=== PATIENT | female | born 1960 | race Caucasian/White ===

== ENCOUNTER 2017-09-29 18:26 | Inpatient (IN) | payer OTHER ==
[~2017-09-29] VITALS: Ht 172.7 cm; Wt 82.6 kg
[~2017-09-29 18:26] MED LIST: ALENDRONATE SOD70 MG PO; AMBIEN; AMITRIPTYLINE H25 M2 PO; ATIVAN0.5 MG PO; ATIVAN1 MG PO; ATORVASTATIN CA40 MG PO; AUGMENTIN 875875 MG PO; CARAFATE 1 GM TA1 G1 PO; CENTRUM SILVER1 EAC4 PO; CHLORDIAZEPOXID25 M1 PO; CIPRO500 MG PO; DESYREL100 MG PO; DESYREL150 MG; FAMOTIDINE20 MG PO; FLUZONE 2045 MCG/011; FOLIC ACID1 MG PO; Folic Acid PO; IBUPROFEN 600600 M1 PO; LIPITOR10 MG; LIPITOR10 MG PO; LIPITOR20 MG PO; MAGOX 400400 MG PO; NORCO 5-325 TA1 EACH PO; OMEPRAZOLE40 MG PO; ONDANSETRON HCL4 M3 PO; PANTOPRAZOLE SO40 M1 PO; PHENERGAN 25 MG25 M1 PO; PHENERGAN12.5 M2 RECTAL; PNEUMOVAX25 MCG/0.5; PRENATA CHEWAB1 EACH PO; REVIA 50 MG TAB50 M1 PO; TRAZODONE HCL100 MG PO; TRAZODONE HCL50 MG PO; TRINATE TABLET1 TAB PO; VITAMIN B-1100 M1 PO; VITAMIN B1 100 MG PO; VITAMIN D1000 UNI1 PO; VITAMIN D35000 UNI1 PO; VITAMIN D350000 UNIT PO; ZANTAC 150MG T150 MG PO; ZOFRAN ODT4 MG PO; ZOFRAN4 MG PO; ZOLOFT; ZOLOFT 50 MG TA50 MG PO; ZOLOFT100 MG PO; ZOLOFT50 MG PO
[2017-09-29 18:28] VITALS: BP 128/80
[2017-09-29 19:20] LABS: CALCIUM 9.3 mg/dL (8.5-10.1); CREATININE 1.1 mg/dL (0.6-1.3); POTASSIUM 4.4 mmol/L (3.5-5.1)
[2017-09-29 19:24] LABS: ALBUMIN 4.5 g/dL (3.4-5.0); MAGNESIUM 1.9 mg/dL (1.8-2.4); TOTAL BILIRUBIN 0.3 mg/dL (<0.1-1.0); TOTAL PROTEIN 8.1 g/dL (6.4-8.2)
[2017-09-29 20:18] LABS: ABSOLUTE BASOPHILS 0.1 thou/uL (0.0-0.2); ABSOLUTE LYMPHOCYTES 1.2 thou/uL (0.8-5.3); ABSOLUTE MONOCYTES 0.3 thou/uL (0.0-1.2); ABSOLUTE NEUTROPHILS 7.4 thou/uL (1.6-8.1); BASOPHILS 0.6 %; EOSINOPHILS 0.1 %; HEMATOCRIT 40.2 % (37.0-47.0); HEMOGLOBIN 12.8 gm/dL (12.0-15.0); LYMPHOCYTES 13.3 %; MCH 29.6 pg (26.0-34.0); MCV 92.6 fL (80.0-100.0); MONOCYTES 3.8 %; MPV 7.6 fl. (7.2-11.1); NUCLEATED RBCS 0 /100WBC; PLATELET COUNT* 329 thou/uL (150-400); POLYS 82.2 %; RBC 4.34 mil/uL (4.20-5.00); RDW-CV 17.7 % (10.5-14.5)
[2017-09-29 21:20] LABS: BE -22.5 mmol/L (-2 to +3); PO2 107.8 mmHg (75.0-100.0)
[2017-09-29 21:23] LABS: PCO2 < 17.0 mmHg (35.0-45.0); pH 7.116 (7.340-7.450)
[2017-09-29 21:24] LABS: HCO3 4.8 mmol/L (22.0-26.0)
[2017-09-29 22:20] LABS: URINE BILIRUBIN NEGATIVE (Negative); URINE BLOOD TRACE (Negative); URINE CLARITY CLEAR; URINE COLOR YELLOW; URINE GLUCOSE-RANDOM NEGATIVE (Negative); URINE LEUKOCYTES-REFLEX NEGATIVE (Negative); URINE NITRITE-REFLEX NEGATIVE (Negative); URINE PROTEIN TRACE (Negative); URINE SPECIFIC GRAVITY >= 1.030 (1.005-1.030); URINE UROBILINOGEN 0.2 E.U./dl (0.2-1.0)
[2017-09-29 22:21] LABS: URINE KETONES 3+ (Negative)
[2017-09-29 22:29] LABS: AMP/METHAMP Negative (Negative); BARBITURATES Negative (Negative); BENZODIAZEPINES POSITIVE (Negative); COCAINE Negative (Negative); METHADONE Negative (Negative); OPIATES Negative (Negative); PCP Negative (Negative); THC Negative (Negative)
[2017-09-29 23:41] VITALS: BP 140/81
[2017-09-30] VITALS (12 sets, daily range): BP systolic 114–150; BP diastolic 66–87
--- NOTE | 2017-09-30 05:30 | NUR ---
PT. ADMITTED TO ROOM 1, SEE ASSESSMENT. ETOH WITHDRAWAL PROTOCOL. UP TO BSC STAND BY ASSIST. IVF INFUSING. SINUS TACHY ON MONITOR. ROOM AIR. CIWA 14 UPON ADMISSION. ORDER RECEIVED FOR ATIVAN PRN. CALL LIGHT IN REACH, WILL CONTINUE TO MONITOR.
[2017-09-30 08:43] LABS: HEMATOCRIT 32.5 % (37.0-47.0); MCH 30.1 pg (26.0-34.0); MCV 88.7 fL (80.0-100.0); MPV 7.1 fl. (7.2-11.1); RBC 3.66 mil/uL (4.20-5.00); RDW-CV 16.4 % (10.5-14.5); WBC 6.1 thou/uL (4.0-11.0)
[2017-09-30 08:52] LABS: PROTIME 10.1 Seconds (9.20-11.50)
[2017-09-30 08:53] LABS: CALCIUM 8.1 mg/dL (8.5-10.1); PHOSPHORUS* 1.5 mg/dL (2.5-4.9)
[2017-09-30 08:56] LABS: ALBUMIN 3.5 g/dL (3.4-5.0); CALCIUM 8.1 mg/dL (8.5-10.1); MAGNESIUM 1.9 mg/dL (1.8-2.4); POTASSIUM 4.3 mmol/L (3.5-5.1); TOTAL BILIRUBIN 0.5 mg/dL (<0.1-1.0); TOTAL PROTEIN 6.8 g/dL (6.4-8.2)
--- NOTE | 2017-09-30 09:39 | NUR ---
PATIENT CARE ASSUMED AT 0700. CURRENT CIWA UPON MORNING ASSESSMENT 5, AND HAS REMAINED THERE. DOSE OF ATIVAN GIVE THIS AM PER PATIENT REQUEST FOR MILD ANXIETY. TREMORS NOTED. PATIENT STATED SHE IS SEEING WHITE SPOTS EVERWHERE, BUT OTHERWISE CALM/NOT AGITATED. IV TO RIGHT EXTERNAL JUGULER REINFORCED. BANANA BAG INFUSING PER ORDERS AT THIS TIME. PATIENT GIVEN CLEAR LIQUIDS AND TOLERATING FINE WITH NO EVIDENCE OF NAUSEA. WILL CONTINUE WITH CURRENT PLAN OF CARE. GOAL FOR TODAY ARE TO PROMOTE COMFORT AND SAFETY.
--- NOTE | 2017-09-30 12:41 | EKG ---
[place] [address] ELECTROCARDIOGRAM REPORT Name: NANY FARAH Room: [address] ADM IN .R.#: [id number] Admission: 09/29/17 Attend Phys: Lucho Marroquin, Discharge: Date of : 62 Report #: [id number] THIS REPORT FOR: //name// [facility] ED Test Date: 2017-09-29 Test Time: 19:19:06 Pat Name: NANY FARAH Department: Room: [facility] Gender: F Sample Checker: PHANI Mayen : 1960 Requested By: Scott Simmons Order Number: [id number] MD: Rishi Callahan Measurements Intervals [place] Rate: 125 P: 35 [place]: 129 QRS: -44 QRSD: 97 T: -4 QT: 327 QTc: 472 Interpretive Statements Sinus tachycardia LAE, consider biatrial enlargement Inferior infarct, old Probable anterior infarct, age indeterminate Compared to ECG 10/22/2016 14:14:28 Myocardial infarct finding now present Left-axis deviation no longer present Electronically Signed On 09-30-2017 12:41:10 LUMBER PILER by Rishi Callahan [email or web address] <ELECTRONICALLY SIGNED> By: Clint Callahan MD, FAC 09/30/17 1241 18 18 Clint Callahan MD, FAC /EPI
--- NOTE | 2017-09-30 17:25 | NUR ---
PATIENT PROGRESSING TOWARDS GOALS. MOST CURRENT CIWA 2. PATIENT RESTING COMFORTABLY THROUGHOUT SHIFT. DENIES OTHER ACUTE ISSUES AT THIS TIME. ABLE TO TRANSFER TO BEDSIDE COMMODE WITH STANDBY ASSIST. IV IN RIGHT EJ REINFORCED. BANANA BAG COMPLETED, NOW SALINE LOCKED. PATIENT DOWNGRADED TO TELEMETRY STATUS TODAY. ADVANCED TO FULL LIQUIDS FOR DINNER. DENIES FURTHER NEEDS FROM NURSING STAFF AT THIS TIME.
[2017-10-01] VITALS: BP 123/71
[2017-10-01 04:00] VITALS: BP 118/79
[2017-10-01 06:36] LABS: CALCIUM 8.4 mg/dL (8.5-10.1); CREATININE 0.6 mg/dL (0.6-1.3); MAGNESIUM 1.9 mg/dL (1.8-2.4); PHOSPHORUS* 1.6 mg/dL (2.5-4.9)
[2017-10-01 06:37] LABS: POTASSIUM 4.8 mmol/L (3.5-5.1)
[2017-10-01] MEDS ORDERED: VITAMIN B-1100 M1 PO (07:23)
[2017-10-01 07:27] VITALS: BP 140/96
[2017-10-01 07:33] VITALS: BP 140/96
[2017-10-01 07:34] VITALS: BP 140/96
--- NOTE | 2017-10-01 08:46 | NUR ---
PATIENT CARE ASSUMED AT 0700. PATIENT AWAKE UPON ENTERING ROOM. CIWA 2 FOR NON-VISIBLE TREMORS, BUT DENIES ALVARADO, SOA, NAUSEA, ANXIETY, AND APPEARS CALM AT THIS TIME. AOX4. DISCHARGING TODAY, BUT PATIENT WISHING TO STAY UNTIL ATIVAN WEARS OUT OF SYSTEM AND SHE FEELS LESS DROWSY. MORNING MEDICATIONS GIVEN ORDERED. PHYSICIAN NOTIFIED FOR WORK RELEASE NOTE AND WAS PROVIDED FOR PATIENT TO RETURN ON Sunday10/03/17. PATIENT RESTING IN BED AT THIS TIME.
--- NOTE | 2017-10-01 11:53 | NUR ---
PATIENT DISCHARGED HOME. RESOURCES GIVEN BY CASE MANAGEMENT FOR OUTPATIENT ETOH TREATMENT. ALL BELONGINGS TAKEN WITH PATIENT. SCRIPT SENT ELECTRONICALLY TO PATIENT'S PHARMACY FOR THIAMIN. PATIENT DENIED FURTHER NEEDS. LEFT AT 1138 BY PRIVATE VEHICLE WITH PARENT AND EXTENDED FAMILY.
== END 2017-10-01 11:15 | disposition home or self-care (01) | DRG 897 ==
LOC: M.ERS 18:26 → M.ICU 22:11 → M.TBA-ER 22:11 → M.ICU 23:36
PROVIDERS: Physician Assistant; ADMIT Family Medicine
DX: F10.188 Alcohol abuse with other alcohol-induced disorder (principal); E87.2 Acidosis; E86.0 Dehydration; Y90.6 Blood alcohol level of 120-199 mg/100 ml; E78.5 Hyperlipidemia, unspecified; M81.0 Age-related osteoporosis without current pathological fracture; K21.9 Gastro-esophageal reflux disease without esophagitis; F32.9 Major depressive disorder, single episode, unspecified; F41.9 Anxiety disorder, unspecified; E16.2 Hypoglycemia, unspecified; E83.39 Other disorders of phosphorus metabolism; Z79.899 Other long term (current) drug therapy

== ENCOUNTER 2017-11-10 22:12 | Inpatient (IN) | payer OTHER ==
[~2017-11-10] VITALS: Ht 172.7 cm; Wt 85.7 kg
[2017-11-10 22:18] VITALS: BP 142/97
[2017-11-10 23:05] LABS: URINE BILIRUBIN NEGATIVE (Negative); URINE BLOOD NEGATIVE (Negative); URINE CLARITY CLEAR; URINE COLOR YELLOW; URINE GLUCOSE-RANDOM NEGATIVE (Negative); URINE KETONES TRACE (Negative); URINE LEUKOCYTES-REFLEX 2+ (Negative); URINE NITRITE-REFLEX NEGATIVE (Negative); URINE PROTEIN NEGATIVE (Negative); URINE SPECIFIC GRAVITY <= 1.005 (1.005-1.030); URINE UROBILINOGEN 0.2 E.U./dl (0.2-1.0)
[2017-11-10 23:07] LABS: ABSOLUTE EOSINOPHILS 0.1 thou/uL (0.0-0.7); ABSOLUTE LYMPHOCYTES 2.3 thou/uL (0.8-5.3); ABSOLUTE MONOCYTES 0.5 thou/uL (0.0-1.2); ABSOLUTE NEUTROPHILS 2.1 thou/uL (1.6-8.1); BASOPHILS 0.8 %; EOSINOPHILS 1.6 %; HEMATOCRIT 36.7 % (37.0-47.0); HEMOGLOBIN 12.3 gm/dL (12.0-15.0); LYMPHOCYTES 45.6 %; MCH 30.7 pg (26.0-34.0); MCHC 33.5 g/dL (28.0-37.0); MCV 91.7 fL (80.0-100.0); MONOCYTES 9.1 %; MPV 7.7 fl. (7.2-11.1); NUCLEATED RBCS 0 /100WBC; PLATELET COUNT* 195 thou/uL (150-400); POLYS 42.9 %; RBC 4.01 mil/uL (4.20-5.00); RDW-CV 19.5 % (10.5-14.5); WBC 4.9 thou/uL (4.0-11.0)
[2017-11-10 23:09] LABS: CALCIUM 9.5 mg/dL (8.5-10.1); CREATININE 0.7 mg/dL (0.6-1.3); POTASSIUM 3.8 mmol/L (3.5-5.1)
[2017-11-10 23:13] LABS: BACTERIA-REFLEX >30 Many /HPF (None Seen); CASTS None Seen /LPF (None Seen); CRYSTALS None Seen /LPF (None Seen); MUCUS 4-6 Moderate strn/LPF (None Seen); RENAL EPITHELIAL CELLS 0-3 Few /LPF (None Seen); SQUAMOUS 4-10 Moderate /LPF (0-3); TRANSITIONAL EPITHEL CELL 0-3 Few /LPF (None Seen); URINE RBC 3-10 Few /HPF (0-2); URINE WBC-REFLEX >25 Many /HPF (0-5); WBC CLUMPS Few (None Seen)
[2017-11-10 23:14] LABS: TOTAL BILIRUBIN 0.5 mg/dL (<0.1-1.0); TOTAL PROTEIN 7.8 g/dL (6.4-8.2)
[2017-11-10 23:14] LABS: AMP/METHAMP Negative (Negative); BARBITURATES Negative (Negative); BENZODIAZEPINES Negative (Negative); COCAINE Negative (Negative); METHADONE Negative (Negative); OPIATES Negative (Negative); PCP Negative (Negative); THC Negative (Negative)
[2017-11-10 23:18] LABS: ACETAMINOPHEN < 2 ug/mL (10-30); ALCOHOL 315 mg/dL (<10); SALICYLATE < 2.8 mg/dL (2.8-20.0)
[2017-11-11] VITALS (7 sets, daily range): BP systolic 126–157; BP diastolic 82–95
--- NOTE | 2017-11-11 02:41 | NUR ---
PT ARRIVED ON FLOOR AROUND 0115 FOR ETOH INTOXICATION. ON FLUIDS RUINING IN LEFT HAND AT 50 ML/HR. C/O PAIN IN HER FEET AND A HEADACHE. ADMISSION ASSESSMENT COMPLETED AT 0200. PT FALLING ASLEEP DURING QUESTIONS AND ASLEEP AT THIS TIME. PT FALL RISK RELATED TO IMPAIRED JUDGEMENT. CIWAP AT 7 AT THIS TIME R/T NAUSEA AND HEADACHE. WILL START PLAN OF CARE DIRECTED.
--- NOTE | 2017-11-11 08:22 | NUR ---
ASSUMED PT CARE AT 0730, FULL ASSESMENT DONE CHARTED. PT C/O PAIN IN HEAD AT 05/29. SHE C/O NAUSEA, ANXIETY AND WANTS SOME MEDS. CONTACTED DR TO GET SOME ORDERED. PTS VSS, SR ON THE MONITOR. FALL PRECATUIONS IN PLACE. CALL LIGHT IN REACH. WILL CONTINUE WITH PLAN OF CARE.
--- NOTE | 2017-11-11 12:46 | EKG ---
[place] [address] ELECTROCARDIOGRAM REPORT Name: SOFINANY JONATHAN Room: [address] ADM IN M.R.#: [id number] Admission: 11/10/17 Attend Phys: Nataliya Doll Discharge: Date of : 62 Report #: [id number] THIS REPORT FOR: //name// [facility] Test Date: 2017-11-11 Test Time: 03:44:58 Pat Name: NANY FARAH Department: Room: [address] Gender: F Professor Of Psychiatry: NICOLETTE : 1960 Requested By: Jonah Lyles Order Number: [id number] Reading MD: Pritesh Cuevas Measurements Intervals [place] Rate: 144 P: SD: QRS: -28 QRSD: 95 T: 101 QT: 327 QTc: 506 Interpretive Statements sinus tach pacs Borderline left axis deviation Borderline low voltage, extremity leads Nonspecific repol abnormality, diffuse leads Prolonged QT interval Baseline wander in lead(s) V1 Compared to ECG 09/29/2017 19:19:06 2:1 AV block now present Early repolarization now present Prolonged QT interval now present Sinus tachycardia no longer present Myocardial infarct finding no longer present Electronically Signed On 11-11-2017 12:46:06 CDT by Pritesh Cuevas [email or web address] <ELECTRONICALLY SIGNED> By: Pritesh Cuevas MD, [facility] 11/11/17 1246 0344 Pritesh Cuevas MD, [facility] /EPI
--- NOTE | 2017-11-11 18:52 | NUR ---
PT PROGRESSING TOWARD GOALS, SHE C/O NAUSEA, ALVARADO, ANXIETY, SWEATS AND TREMORS TODAY. REFER TO CHARTING FOR ALCOHOL WITH DRAWL ASSESMENTS. PT GIVEN MEDS PER MAR. PT STATES SHE IS HAVING NO SYMPTOMS AT THIS TIME. PT RESTING IN BED. FLUIDS INFUSING TO LEFT HAND IV. SR ON THE MONITOR. VSS. WILL CONTINUE TO MONITOR TO END OF SHIFT.
--- NOTE | 2017-11-11 19:50 | NUR ---
THIS NURSE RECEIVES REPORT FROM YU RN AT 1930, PT IS RESTING WITH EYES CLOSED, EASILY ARROUSED, ORIENTED X4, PT DENIES PAIN, REPORTS ANXIETY BETTER AND PT REPORTS THAT SHE OVERALL FEELS BETTER, IV FLUIDS INFUSINT TO RT WRIST IV, REMAINS ON CARDIAC MONITORING, PT EXPRESSES NO COMPLAINTS/CONCERNS AT THIS TIME
[2017-11-12 00:27] VITALS: BP 114/82
[2017-11-12 04:17] VITALS: BP 110/75
[2017-11-12 04:39] LABS: ABSOLUTE EOSINOPHILS 0.1 thou/uL (0.0-0.7); ABSOLUTE LYMPHOCYTES 1.6 thou/uL (0.8-5.3); ABSOLUTE MONOCYTES 0.5 thou/uL (0.0-1.2); ABSOLUTE NEUTROPHILS 0.8 thou/uL (1.6-8.1); BASOPHILS 0.9 %; EOSINOPHILS 3.5 %; HEMATOCRIT 33.2 % (37.0-47.0); HEMOGLOBIN 11.2 gm/dL (12.0-15.0); LYMPHOCYTES 51.6 %; MCH 30.9 pg (26.0-34.0); MCHC 33.6 g/dL (28.0-37.0); MCV 91.9 fL (80.0-100.0); MONOCYTES 16.8 %; MPV 7.8 fl. (7.2-11.1); NUCLEATED RBCS 0 /100WBC; PLATELET COUNT* 188 thou/uL (150-400); POLYS 27.2 %; RBC 3.62 mil/uL (4.20-5.00); RDW-CV 19.4 % (10.5-14.5); WBC 3.1 thou/uL (4.0-11.0)
[2017-11-12 05:20] LABS: CALCIUM 8.7 mg/dL (8.5-10.1); CREATININE 0.8 mg/dL (0.6-1.3); POTASSIUM 3.7 mmol/L (3.5-5.1)
--- NOTE | 2017-11-12 06:16 | NUR ---
PT RESTED WELL DURING THE NIGHT, AWOKE THIS AM WITH ALVARADO RECEIVES TYLENOL, PT DENIES ANXIETY, SCORES 5 ON CIWA, PT VOICES NO COMPLAINTS/CONCERNS
[2017-11-12 08:45] VITALS: BP 119/81
--- NOTE | 2017-11-12 08:45 | NUR ---
ASSUMED PT. CARE AND RECIVED REPORT AT 0730. PT A/OX4, VSS, MONITOR ON TRACING SR. PT. DENIES CURRENT PAIN/SOB. FULL ASSESSMENT COMPLETED, REFER TO CHARTING. CIWA SCORE THIS MORNING IS 0. CALL LIGHT IN REACH, WILL CONTINUE WITH PLAN OF CARE.
--- NOTE | 2017-11-12 11:19 | NUR ---
CM ASSESSMENT: Pt is A&O. Resides at home alone. Independent with ADLs, continues to work outside of the home. No DME. No hx of HH or SNF. Pt admitted for alcohol withdrawal, Pt acknowledges her drinking problem, states that she has been in residential tx at [facility] in [facility], in 2005 and 2007. Pt states that she has been in half a dozen outpt tx programs. Pt states "I know what I need to do, I just need to commit to doing it." CM provided Pt with a list of tx options/numbers. Pt's goal is to return home once medically stable.
--- NOTE | 2017-11-12 11:47 | NUR ---
Nutrition: Pt admitted with ETOH w/d. Assessed d/t nursing risk 2 points. Pt usually weighs ~185#, current wt 188# - no apparent wt loss. Regular diet. Albumin 4, BG ok. H/o ETOH, ARF. Pt appears at mild risk. Poor nutrition can be expected with ETOHism. Recommend MVI.
[2017-11-12 11:49] VITALS: BP 127/83
--- NOTE | 2017-11-12 15:18 | NUR ---
NO OT AT THIS TIME, PT IS INDEP WITH ALL BADLS AND MOB AT THIS TIME, PT NURSING AND NOTES
[2017-11-12 16:02] VITALS: BP 130/86
--- NOTE | 2017-11-12 19:14 | NUR ---
PT. STABLE THROUGH OUT SHIFT. C/O HEADACHE X 2 AND ABD. CRAMPING WITH MILD DIARRHEA THIS AFTERNOON. CIWA SCORE HAS REMAINED < 4 THIS SHIFT. PT. DID EXHIBIT SOME TREMORS LATER IN THE DAY. NO COMPLAINTS OF PAIN. PT. CALM AND COOPERTIVE, SLEEPING ON/OFF DURING THIS SHIFT. HOURLY ROUNDING COMPLETED THROUGH OUT THE DAY FOR PT. SAFETY.
[2017-11-12 20:30] VITALS: BP 123/94
[2017-11-13 00:08] VITALS: BP 128/88
--- NOTE | 2017-11-13 03:08 | NUR ---
TOOK PT INTO CARE AT 1930. PT UP AD SAMUEL, ABLE TO MAKE NEEDS KNOWN. ASSESSMENT COMPLETED CHARTED. NO C/O PAIN, SINUS RHYTHM, CIWA OF <5, A HEADACHE AND NAUSEA NOTED AT TIMES. PT C/O INSOMNIA R/T HUNGER, UNUSUAL NORMAL SLEEPING HOURS, AND IS NOW NOTED TO BE RESTING IN BED COMFORTABLY. BANANA BAG QDAY AND IV SALINE LOCKED AT THIS TIME. WILL CONTINUE WITH PLAN OF CARE AND MONITOR PROGRESS.
[2017-11-13 04:00] VITALS: BP 115/70
[2017-11-13 05:26] LABS: HEMATOCRIT 35.6 % (37.0-47.0); HEMOGLOBIN 11.8 gm/dL (12.0-15.0); MCH 30.8 pg (26.0-34.0); MCV 93.2 fL (80.0-100.0); RBC 3.82 mil/uL (4.20-5.00); RDW-CV 20.2 % (10.5-14.5)
[2017-11-13 05:53] LABS: CALCIUM 9.1 mg/dL (8.5-10.1); CREATININE 0.8 mg/dL (0.6-1.3); MAGNESIUM 1.6 mg/dL (1.8-2.4); POTASSIUM 3.9 mmol/L (3.5-5.1); TOTAL BILIRUBIN 0.5 mg/dL (<0.1-1.0); TOTAL PROTEIN 6.4 g/dL (6.4-8.2)
[2017-11-13 08:00] VITALS: BP 136/87
[2017-11-13 11:31] VITALS: BP 136/86
[2017-11-13] MEDS ORDERED: GABAPENTIN 100100 MG PO (13:05)
[2017-11-13] MEDS ORDERED: PRENATAL PO (13:06)
[2017-11-13] MEDS ORDERED: BACTRIM DS TAB1 EACH PO (13:07)
[2017-11-13] MEDS ORDERED: ATIVAN0.5 MG PO (13:08)
[2017-11-13 13:11] VITALS: BP 136/86
--- NOTE | 2017-11-13 13:28 | NUR ---
P.T. ORDERS RECEIVED. CHART REVIEWED. PT REFUSED EVAL ON 11/12/17. ON 11/13/17 NSG AND PT INDICATE PT UP AD SAMUEL W/O DIFFICULTY. PT REPORTS AMB IN HALLS INDEP. PT HAS ORDERS TO DISCHARGE HOME. NO ACUTE P.T. INTERVENTION INDICATED.
--- NOTE | 2017-11-13 18:54 | NUR ---
ORDER RECEIVED TO DISCHARE LETYANATOLY TO SELF CARE AT HOME WITH RESOURCE INFORMATION FOR ALCOHOL REHAB. MED REC, MEDICATION EDUCATION, STROKE EDUCATION, AND NEED FOR FOLLOW UP AQPPOINTMENTS COVERED AND STATED UNDERSTOOD BY MEG. IV AND TELEMETRY PACK REMOVED. MEG EDUCATED EXTENSIVELY ABOUT THE NEED TO STOP ABUSING ALCOHOL. DC TIME O F 14:22.
== END 2017-11-13 14:22 | disposition home or self-care (01) | DRG 896 ==
LOC: M.ERS 22:12 → M.TBA-ER 23:53 → M.2W 23:53
PROVIDERS: Emergency Medicine Emergency Medical Services; Internal Medicine; ADMIT Internal Medicine
DX: F10.230 Alcohol dependence with withdrawal, uncomplicated (principal); G92 Toxic encephalopathy; N39.0 Urinary tract infection, site not specified; E78.5 Hyperlipidemia, unspecified; M81.0 Age-related osteoporosis without current pathological fracture; K21.9 Gastro-esophageal reflux disease without esophagitis; F32.9 Major depressive disorder, single episode, unspecified; F41.9 Anxiety disorder, unspecified; F10.220 Alcohol dependence with intoxication, uncomplicated; J06.9 Acute upper respiratory infection, unspecified; Z60.2 Problems related to living alone; Z79.899 Other long term (current) drug therapy

== ENCOUNTER 2017-12-21 18:49 | Inpatient (IN) | payer OTHER, SELFPAY ==
[~2017-12-21] VITALS: Ht 170.2 cm; Wt 84.4 kg
[~2017-12-21 18:49] MED LIST changes: +BACTRIM DS TAB1 EACH PO; +GABAPENTIN 100100 MG PO; +PRENATAL PO
[2017-12-21 19:02] VITALS: BP 136/81
[2017-12-21 19:33] LABS: URINE BLOOD 1+ (Negative); URINE CLARITY CLEAR; URINE COLOR YELLOW; URINE GLUCOSE-RANDOM NEGATIVE (Negative); URINE KETONES 2+ (Negative); URINE LEUKOCYTES-REFLEX NEGATIVE (Negative); URINE NITRITE-REFLEX NEGATIVE (Negative); URINE PROTEIN 2+ (Negative); URINE SPECIFIC GRAVITY >= 1.030 (1.005-1.030); URINE UROBILINOGEN 0.2 E.U./dl (0.2-1.0)
[2017-12-21 19:34] LABS: ICTOTEST (BILI CONFIRMATORY) Negative (Negative); URINE BILIRUBIN 1+ (Negative)
[2017-12-21 19:41] LABS: BACTERIA-REFLEX None Seen /HPF (None Seen); CASTS None Seen /LPF (None Seen); CRYSTALS None Seen /LPF (None Seen); MUCUS 0-3 Light strn/LPF (None Seen); SQUAMOUS 4-10 Moderate /LPF (0-3); URINE RBC 3-10 Few /HPF (0-2); URINE WBC-REFLEX 0-5 Rare /HPF (0-5)
[2017-12-21 19:42] LABS: AMP/METHAMP Negative (Negative); BARBITURATES Negative (Negative); BENZODIAZEPINES POSITIVE (Negative); COCAINE Negative (Negative); METHADONE Negative (Negative); OPIATES Negative (Negative); PCP Negative (Negative); THC Negative (Negative)
[2017-12-21 19:45] LABS: BE -21.7 mmol/L (-2 to +3); PO2 102.9 mmHg (75.0-100.0)
[2017-12-21 19:48] LABS: pH 7.144 (7.340-7.450)
[2017-12-21 19:49] LABS: HEMOGLOBIN 13.4 gm/dL (12.0-15.0); MCH 31.9 pg (26.0-34.0); MCHC 31.8 g/dL (28.0-37.0); MCV 100.2 fL (80.0-100.0); NUCLEATED RBCS 0 /100WBC; PLATELET COUNT* 243 thou/uL (150-400); RDW-CV 19.8 % (10.5-14.5)
[2017-12-21 19:49] LABS: HCO3 4.9 mmol/L (22.0-26.0); PCO2 < 17.0 mmHg (35.0-45.0)
[2017-12-21 19:57] LABS: CALCIUM 9.3 mg/dL (8.5-10.1); CREATININE 1.1 mg/dL (0.6-1.3)
[2017-12-21 20:01] LABS: ALBUMIN 4.7 g/dL (3.4-5.0); TOTAL BILIRUBIN 0.4 mg/dL (<0.1-1.0); TOTAL PROTEIN 8.8 g/dL (6.4-8.2)
[2017-12-21 20:05] LABS: ABSOLUTE LYMPHOCYTES 0.4 thou/uL (0.8-5.3); ABSOLUTE MONOCYTES 0.2 thou/uL (0.0-1.2); ABSOLUTE NEUTROPHILS 5.4 thou/uL (1.6-8.1); PLATELET ESTIMATE ADEQUATE
[2017-12-21 21:06] VITALS: BP 120/73
[2017-12-21 21:30] VITALS: BP 14/85
[2017-12-21 22:00] VITALS: BP 126/64
[2017-12-21 23:00] VITALS: BP 113/75
[2017-12-21 23:39] LABS: MAGNESIUM 1.8 mg/dL (1.8-2.4); PHOSPHORUS* 5.6 mg/dL (2.5-4.9); PROTIME 9.6 Seconds (9.20-11.50)
[2017-12-22] VITALS (21 sets, daily range): BP systolic 102–166; BP diastolic 62–97
[2017-12-22 04:06] LABS: AMMONIA < 10 umol/L (11-32); ANION GAP 26 mmol/L (7-16); BUN 13 mg/dL (7-18); CALCIUM 8.4 mg/dL (8.5-10.1); CHLORIDE 98 mmol/L (98-107); CO2 13 mmol/L (21-32); CREATININE 1.1 mg/dL (0.6-1.3); GLUCOSE 106 mg/dL (70-99); MAGNESIUM 2.3 mg/dL (1.8-2.4); PHOSPHORUS* 2.6 mg/dL (2.5-4.9); POTASSIUM 5.4 mmol/L (3.5-5.1); SODIUM 137 mmol/L (136-145)
[2017-12-22] MEDS ORDERED: LIPITOR 20 MG T20 M1 PO (08:33)
--- NOTE | 2017-12-22 10:12 | EKG ---
[place] [address] ELECTROCARDIOGRAM REPORT Name: DARIENCADYNANY JONATHAN Room: [address] IN .R.#: [id number] Admission: 12/21/17 Attend Phys: Elsa Chacon MD Discharge: Date of : 62 Report #: [id number] THIS REPORT FOR: //name// [facility] ED Test Date: 2017-12-21 Test Time: 21:12:48 Pat Name: NANY FARAH Department: Room: Gender: F [employer] Instrument Repairer: CATALINA Mayen : 1960 Requested By: Joaquina Balderas Order Number: [id number] MD: Rishi Callahan Measurements Intervals [place] Rate: 120 P: 57 [place]: 137 QRS: -35 QRSD: 96 T: 21 QT: 323 QTc: 457 Interpretive Statements Sinus tachycardia Probable left atrial enlargement Left axis deviation Low voltage, extremity leads Baseline wander in lead(s) II,aVF Compared to ECG 11/11/2017 03:44:58 Early repolarization no longer present Prolonged QT interval no longer present Electronically Signed On 12-22-2017 10:12:28 CDT by Rishi Callahan [email or web address] <ELECTRONICALLY SIGNED> By: Clint Callahan MD, [facility] 12/22/171011 11 11 Clint Callahan MD, [facility] /EPI
--- NOTE | 2017-12-22 10:16 | EKG ---
[place] [address] ELECTROCARDIOGRAM REPORT Name: NANY FARAH Room: [address] ADM IN M.R.#: [id number] Admission: 12/21/17 Attend Phys: Elsa Chacon MD Discharge: Date of : 62 Report #: [id number] THIS REPORT FOR: //name// [facility] Test Date: 2017-12-22 Test Time: 07:49:20 Pat Name: NANY FARAH Department: Room: [address] Gender: F Dietitian Helper: LETY : 1960 Requested By: Elsa Chacon Order Number: [id number] Reading MD: Rishi Callahan Measurements Intervals [place] Rate: 101 P: 41 [place]: 144 QRS: -19 QRSD: 92 T: 7 QT: 357 QTc: 463 Interpretive Statements Sinus tachycardia Borderline left axis deviation Low voltage, extremity leads Compared to ECG 11/11/2017 03:44:58 Early repolarization no longer present Prolonged QT interval no longer present Electronically Signed On 12-22-2017 10:16:25 CDT by Rishi Callahan [email or web address] <ELECTRONICALLY SIGNED> By: Clint Callahan MD, [facility] 12/22/17 1016 0749 0749 Clint Callahan MD, [facility] /EPI
[2017-12-22 10:40] LABS: APTT 23.1 Seconds (25.0-31.3)
[2017-12-22 21:42] LABS: CALCIUM 8.3 mg/dL (8.5-10.1)
[2017-12-22 21:51] LABS: POTASSIUM 3.9 mmol/L (3.5-5.1)
[2017-12-23] VITALS (11 sets, daily range): BP systolic 112–136; BP diastolic 69–86
[2017-12-23 04:43] LABS: HEMATOCRIT 33.9 % (37.0-47.0); MCH 31.6 pg (26.0-34.0); MCV 95.9 fL (80.0-100.0); MPV 8.2 fl. (7.2-11.1); RBC 3.53 mil/uL (4.20-5.00); RDW-CV 18.4 % (10.5-14.5); WBC 3.7 thou/uL (4.0-11.0)
[2017-12-23 05:12] LABS: HEMOGLOBIN 11.2 gm/dL (12.0-15.0)
[2017-12-23 05:20] LABS: ALBUMIN 3.6 g/dL (3.4-5.0); CALCIUM 8.3 mg/dL (8.5-10.1); PHOSPHORUS* 1.6 mg/dL (2.5-4.9); POTASSIUM 4.1 mmol/L (3.5-5.1); TOTAL PROTEIN 6.4 g/dL (6.4-8.2)
[2017-12-24 03:44] VITALS: BP 123/82
[2017-12-24 04:25] LABS: CALCIUM 8.5 mg/dL (8.5-10.1); CREATININE 0.7 mg/dL (0.6-1.3); MAGNESIUM 1.5 mg/dL (1.8-2.4); PHOSPHORUS* 1.8 mg/dL (2.5-4.9); POTASSIUM 3.4 mmol/L (3.5-5.1)
[2017-12-24 07:52] VITALS: BP 139/96
[2017-12-24 11:37] VITALS: BP 130/92
[2017-12-24 20:32] VITALS: BP 144/100
[2017-12-25 01:43] VITALS: BP 143/94
[2017-12-25 05:27] LABS: HEMATOCRIT 31.3 % (37.0-47.0); HEMOGLOBIN 10.4 gm/dL (12.0-15.0); MCH 31.6 pg (26.0-34.0); MCHC 33.3 g/dL (28.0-37.0); MCV 94.8 fL (80.0-100.0); MPV 8.1 fl. (7.2-11.1); RBC 3.3 mil/uL (4.20-5.00); RDW-CV 17.7 % (10.5-14.5); WBC 3.6 thou/uL (4.0-11.0)
[2017-12-25 05:43] LABS: CALCIUM 8.6 mg/dL (8.5-10.1); CREATININE 0.6 mg/dL (0.6-1.3); MAGNESIUM 1.8 mg/dL (1.8-2.4)
[2017-12-25 05:47] LABS: POTASSIUM 2.9 mmol/L (3.5-5.1)
[2017-12-25 08:30] VITALS: BP 119/68
[2017-12-25 15:38] VITALS: BP 139/94
[2017-12-25 21:48] VITALS: BP 141/97
[2017-12-26 06:45] LABS: HEMATOCRIT 34.2 % (37.0-47.0); HEMOGLOBIN 11.5 gm/dL (12.0-15.0); MCH 31.9 pg (26.0-34.0); MCHC 33.5 g/dL (28.0-37.0); MCV 95.3 fL (80.0-100.0); MPV 7.9 fl. (7.2-11.1); RBC 3.59 mil/uL (4.20-5.00); RDW-CV 18.1 % (10.5-14.5); WBC 4.2 thou/uL (4.0-11.0)
[2017-12-26 07:04] LABS: CALCIUM 9.6 mg/dL (8.5-10.1); CREATININE 0.7 mg/dL (0.6-1.3); POTASSIUM 3.8 mmol/L (3.5-5.1)
[2017-12-26 08:00] VITALS: BP 138/97
[2017-12-26 10:56] VITALS: BP 138/97
== END 2017-12-26 12:45 | disposition home or self-care (01) | DRG 91 ==
LOC: M.ERS 18:49 → M.TBA-ER 20:09 → M.ICU 20:09 → M.2W 20:09 → M.ICU 21:24 → M.2W 12-23 10:39 → M.3W 12-25 17:30
PROVIDERS: Emergency Medicine Emergency Medical Services; Internal Medicine; Physician Assistant; Surgery; ADMIT Internal Medicine
PROC: B548ZZA Ultrasonography of Superior Vena Cava, Guidance (ICD-10-PCS; principal; 2017-12-22)
PROC: 02HV33Z Insertion of Infusion Device into Superior Vena Cava, Percutaneous Approach (ICD-10-PCS; principal; 2017-12-22)
DX: G92 Toxic encephalopathy (principal); J96.00 Acute respiratory failure, unspecified whether with hypoxia or hypercapnia; F10.239 Alcohol dependence with withdrawal, unspecified; E87.2 Acidosis; Y90.6 Blood alcohol level of 120-199 mg/100 ml; E78.5 Hyperlipidemia, unspecified; M81.0 Age-related osteoporosis without current pathological fracture; K21.9 Gastro-esophageal reflux disease without esophagitis; F32.9 Major depressive disorder, single episode, unspecified; F41.9 Anxiety disorder, unspecified; K74.60 Unspecified cirrhosis of liver; E86.0 Dehydration; E87.6 Hypokalemia; R91.1 Solitary pulmonary nodule

== ENCOUNTER 2018-01-07 18:01 | Inpatient (IN) | payer SELFPAY ==
[~2018-01-07] VITALS: Ht 152.4 cm; Wt 89.4 kg
[~2018-01-07 18:01] MED LIST changes: +LIPITOR 20 MG T20 M1 PO
[2018-01-07 18:08] VITALS: BP 133/72
[2018-01-07 18:37] LABS: BE -27.7 mmol/L (-2 to +3)
[2018-01-07 18:55] LABS: HCO3 2.4 mmol/L (22.0-26.0); PCO2 < 17.0 mmHg (35.0-45.0); PO2 136.5 mmHg (75.0-100.0); pH 6.967 (7.340-7.450)
[2018-01-07 20:23] LABS: HEMATOCRIT 38.8 % (37.0-47.0); HEMOGLOBIN 11.9 gm/dL (12.0-15.0); MCH 31.1 pg (26.0-34.0); MCHC 30.5 g/dL (28.0-37.0); MPV 7.7 fl. (7.2-11.1); NUCLEATED RBCS 0 /100WBC; PLATELET COUNT* 266 thou/uL (150-400); RBC 3.81 mil/uL (4.20-5.00); RDW-CV 19.5 % (10.5-14.5); WBC 13.4 thou/uL (4.0-11.0)
[2018-01-07 20:31] LABS: ANION GAP 43 mmol/L (7-16); BUN 10 mg/dL (7-18); CALCIUM 8.4 mg/dL (8.5-10.1); CHLORIDE 96 mmol/L (98-107); CREATININE 1.6 mg/dL (0.6-1.3); GLUCOSE 69 mg/dL (70-99); POTASSIUM 4.5 mmol/L (3.5-5.1); SODIUM 144 mmol/L (136-145)
[2018-01-07 20:33] LABS: CO2 < 5 mmol/L (21-32)
[2018-01-07 20:36] VITALS: BP 129/104
[2018-01-07 20:36] LABS: ALKALINE PHOSPHATASE 110 U/L (46-116); SGOT 354 U/L (15-37); SGPT 135 U/L (30-65); TOTAL BILIRUBIN 0.5 mg/dL (<0.1-1.0); TOTAL PROTEIN 7.4 g/dL (6.4-8.2)
[2018-01-07 20:41] LABS: ABSOLUTE LYMPHOCYTES 1.1 thou/uL (0.8-5.3); ABSOLUTE MONOCYTES 0.4 thou/uL (0.0-1.2); ABSOLUTE NEUTROPHILS 11.9 thou/uL (1.6-8.1); PLATELET ESTIMATE ADEQUATE
[2018-01-07 21:07] LABS: APTT 23.7 Seconds (25.0-31.3); PROTIME 10.1 Seconds (9.20-11.50)
[2018-01-07 21:21] LABS: POTASSIUM 4.7 mmol/L (3.5-5.1)
[2018-01-07 22:00] VITALS: BP 104/54
[2018-01-07 22:41] LABS: URINE BILIRUBIN NEGATIVE (Negative); URINE BLOOD 2+ (Negative); URINE CLARITY CLEAR; URINE COLOR YELLOW; URINE GLUCOSE-RANDOM NEGATIVE (Negative); URINE KETONES 1+ (Negative); URINE LEUKOCYTES-REFLEX NEGATIVE (Negative); URINE NITRITE-REFLEX NEGATIVE (Negative); URINE PROTEIN 2+ (Negative); URINE SPECIFIC GRAVITY >= 1.030 (1.005-1.030); URINE UROBILINOGEN 0.2 E.U./dl (0.2-1.0)
[2018-01-07 22:49] LABS: AMP/METHAMP Negative (Negative); BARBITURATES Negative (Negative); BENZODIAZEPINES POSITIVE (Negative); COCAINE Negative (Negative); METHADONE Negative (Negative); OPIATES Negative (Negative); PCP Negative (Negative); THC Negative (Negative)
[2018-01-07 22:51] LABS: BACTERIA-REFLEX 1-9 Few /HPF (None Seen); CASTS None Seen /LPF (None Seen); SQUAMOUS 4-10 Moderate /LPF (0-3); URINE RBC 0-2 Rare /HPF (0-2); URINE WBC-REFLEX 0-5 Rare /HPF (0-5)
[2018-01-07 22:52] LABS: AMORPHOUS URATES Moderate /LPF (None Seen)
[2018-01-07 23:00] VITALS: BP 125/34
[2018-01-08] VITALS (23 sets, daily range): BP systolic 100–141; BP diastolic 60–83
[2018-01-08 04:57] LABS: POTASSIUM 4.4 mmol/L (3.5-5.1)
[2018-01-08 05:04] LABS: PHOSPHORUS* 2.6 mg/dL (2.5-4.9)
[2018-01-08 05:05] LABS: MCH 31.9 pg (26.0-34.0); MCHC 33.1 g/dL (28.0-37.0); RBC 3.11 mil/uL (4.20-5.00); RDW-CV 18.7 % (10.5-14.5); WBC 6.8 thou/uL (4.0-11.0)
[2018-01-08 05:07] LABS: HEMOGLOBIN 9.9 gm/dL (12.0-15.0); MCV 96.4 fL (80.0-100.0)
[2018-01-08 05:16] LABS: CREATININE 1.4 mg/dL (0.6-1.3); MAGNESIUM 1.1 mg/dL (1.8-2.4); POTASSIUM 4.5 mmol/L (3.5-5.1); TOTAL BILIRUBIN 0.6 mg/dL (<0.1-1.0); TOTAL PROTEIN 5.6 g/dL (6.4-8.2)
[2018-01-08 05:21] LABS: CALCIUM 6.4 mg/dL (8.5-10.1)
[2018-01-08 06:20] LABS: BE -5.5 mmol/L (-2 to +3); HCO3 17.8 mmol/L (22.0-26.0); PCO2 27.3 mmHg (35.0-45.0); PO2 93.8 mmHg (75.0-100.0); pH 7.433 (7.340-7.450)
[2018-01-08 09:04] LABS: POTASSIUM 3.6 mmol/L (3.5-5.1)
--- NOTE | 2018-01-08 10:04 | EKG ---
[place] [address] ELECTROCARDIOGRAM REPORT Name: SOFINANY MARIE Room: [address] IN .R.#: [id number] Admission: 01/07/18 Attend Phys: Elsa Chacon MD Discharge: Date of : 62 Report #: [id number] THIS REPORT FOR: //name// [facility] ED Test Date: 2018-01-07 Test Time: 18:21:38 Pat Name: NANY FARAH Department: Room: Gender: F Crown Ironer: Faheem BOWLING : 1960 Requested By: Joaquina Balderas Order Number: [id number] MD: Zachary Warren Measurements Intervals [place] Rate: 117 P: 56 [place]: 128 QRS: -7 QRSD: 108 T: -4 QT: 349 QTc: 487 Interpretive Statements Sinus tachycardia Low voltage, extremity leads Borderline prolonged QT interval Artifact in lead(s) I,II,III,aVR,aVL,aVF and baseline wander in lead(s) V6 Compared to ECG 12/22/2017 07:49:20 t wave changes less prominent Electronically Signed On 01-08-2018 10:04:37 CDT by Zachary Warren [email or web address] <ELECTRONICALLY SIGNED> By: Zachary Warren MD, [facility] 01/08/18 1004 20 20 Zachary Warren MD, [facility] /EPI
[2018-01-08 13:08] LABS: POTASSIUM 3.1 mmol/L (3.5-5.1)
[2018-01-08 17:38] LABS: POTASSIUM 3.7 mmol/L (3.5-5.1)
[2018-01-08] MEDS ORDERED: PROTONIX40 M1 PO (20:28)
[2018-01-09] VITALS (12 sets, daily range): BP systolic 106–150; BP diastolic 70–97
[2018-01-09 03:58] LABS: HEMATOCRIT 30.3 % (37.0-47.0); HEMOGLOBIN 10.2 gm/dL (12.0-15.0); MCH 31.5 pg (26.0-34.0); MCHC 33.5 g/dL (28.0-37.0); MCV 93.9 fL (80.0-100.0); MPV 8.5 fl. (7.2-11.1); RBC 3.23 mil/uL (4.20-5.00); RDW-CV 18.6 % (10.5-14.5); WBC 4.6 thou/uL (4.0-11.0)
[2018-01-09 04:07] LABS: MAGNESIUM 2.1 mg/dL (1.8-2.4); PHOSPHORUS* 1.2 mg/dL (2.5-4.9)
[2018-01-09 04:08] LABS: ALBUMIN 2.8 g/dL (3.4-5.0); CALCIUM 6.8 mg/dL (8.5-10.1); CREATININE 0.9 mg/dL (0.6-1.3); POTASSIUM 3.7 mmol/L (3.5-5.1); TOTAL BILIRUBIN 0.5 mg/dL (<0.1-1.0); TOTAL PROTEIN 5.3 g/dL (6.4-8.2)
[2018-01-09 05:21] LABS: INR 1.1; PROTIME 10.7 Seconds (9.20-11.50)
[2018-01-10 04:32] VITALS: BP 139/91
[2018-01-10 06:03] LABS: CALCIUM 8.2 mg/dL (8.5-10.1); CREATININE 0.7 mg/dL (0.6-1.3); MAGNESIUM 1.6 mg/dL (1.8-2.4); PHOSPHORUS* 1.6 mg/dL (2.5-4.9); POTASSIUM 3.4 mmol/L (3.5-5.1)
[2018-01-10 08:20] VITALS: BP 141/84
[2018-01-10] MEDS ORDERED: CARAFATE 11 GM/10 M1 PO (10:03)
[2018-01-10 11:01] VITALS: BP 139/91
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
== END 2018-01-10 13:40 | disposition home or self-care (01) | DRG 683 ==
LOC: M.ERS 18:01 → M.ICU 19:10 → M.TBA-ER 19:10 → M.ICU 20:16 → M.3W 01-09 17:22
PROVIDERS: Family Medicine; Internal Medicine; Physician Assistant; ADMIT Internal Medicine
PROC: 02HV33Z Insertion of Infusion Device into Superior Vena Cava, Percutaneous Approach (ICD-10-PCS; principal; 2018-01-07)
DX: N17.9 Acute kidney failure, unspecified (principal); E87.2 Acidosis; R65.10 Systemic inflammatory response syndrome (SIRS) of non-infectious origin without acute organ dysfunction; F10.239 Alcohol dependence with withdrawal, unspecified; E78.5 Hyperlipidemia, unspecified; M81.0 Age-related osteoporosis without current pathological fracture; K21.9 Gastro-esophageal reflux disease without esophagitis; F32.9 Major depressive disorder, single episode, unspecified; F41.9 Anxiety disorder, unspecified; K70.30 Alcoholic cirrhosis of liver without ascites; E86.0 Dehydration; I95.9 Hypotension, unspecified; E83.42 Hypomagnesemia; D64.9 Anemia, unspecified; Z79.899 Other long term (current) drug therapy

== ENCOUNTER 2018-05-11 21:29 | Inpatient (IN) | payer OTHER ==
[~2018-05-11] VITALS: Ht 160 cm; Wt 80.2 kg
[~2018-05-11 21:29] MED LIST changes: +CARAFATE 11 GM/10 M1 PO; +PROTONIX40 M1 PO
[2018-05-11 21:35] VITALS: BP 139/93
[2018-05-11 21:54] LABS: ABSOLUTE BASOPHILS 0.1 thou/uL (0.0-0.2); ABSOLUTE LYMPHOCYTES 2.8 thou/uL (0.8-5.3); ABSOLUTE MONOCYTES 0.5 thou/uL (0.0-1.2); BASOPHILS 0.7 %; EOSINOPHILS 0.1 %; HEMATOCRIT 42.9 % (37.0-47.0); HEMOGLOBIN 13.8 gm/dL (12.0-15.0); LYMPHOCYTES 33.5 %; MCH 30.2 pg (26.0-34.0); MCHC 32.3 g/dL (28.0-37.0); MCV 93.7 fL (80.0-100.0); MONOCYTES 5.9 %; MPV 7.3 fl. (7.2-11.1); NUCLEATED RBCS 0 /100WBC; PLATELET COUNT* 308 thou/uL (150-400); POLYS 59.8 %; RBC 4.58 mil/uL (4.20-5.00); RDW-CV 16.5 % (10.5-14.5); WBC 8.4 thou/uL (4.0-11.0)
[2018-05-11 22:16] LABS: CREATININE 1.1 mg/dL (0.6-1.3); POTASSIUM 4.4 mmol/L (3.5-5.1)
[2018-05-11 22:17] LABS: CALCIUM 8.6 mg/dL (8.5-10.1)
[2018-05-11 22:28] LABS: MAGNESIUM 1.9 mg/dL (1.8-2.4); TOTAL BILIRUBIN 0.3 mg/dL (<0.1-1.0); TOTAL PROTEIN 8.7 g/dL (6.4-8.2)
[2018-05-11 22:29] LABS: ALBUMIN 4.7 g/dL (3.4-5.0)
[2018-05-11 23:44] VITALS: BP 128/79
[2018-05-11 23:59] VITALS: BP 142/83
[2018-05-12] VITALS (21 sets, daily range): BP systolic 97–140; BP diastolic 57–81
[2018-05-12 00:03] LABS: URINE BILIRUBIN NEGATIVE (Negative); URINE BLOOD 1+ (Negative); URINE CLARITY CLEAR; URINE COLOR YELLOW; URINE GLUCOSE-RANDOM NEGATIVE (Negative); URINE LEUKOCYTES-REFLEX 1+ (Negative); URINE NITRITE-REFLEX NEGATIVE (Negative); URINE PROTEIN 1+ (Negative); URINE SPECIFIC GRAVITY >= 1.030 (1.005-1.030); URINE UROBILINOGEN 0.2 E.U./dl (0.2-1.0)
[2018-05-12 00:04] LABS: URINE KETONES 3+ (Negative)
[2018-05-12 00:30] LABS: BACTERIA-REFLEX >30 Many /HPF (None Seen); COARSE GRANULAR CASTS 0-3 Few /LPF (None Seen); CRYSTALS None Seen /LPF (None Seen); FINE GRANULAR CASTS 0-3 Few /LPF (None Seen); HYALINE CASTS 0-3 Few /LPF (None Seen); MUCUS 4-6 Moderate strn/LPF (None Seen); SQUAMOUS 0-3 Few /LPF (0-3); TRANSITIONAL EPITHEL CELL 0-3 Few /LPF (None Seen); URINE RBC 3-10 Few /HPF (0-2); URINE WBC-REFLEX 6-15 Few /HPF (0-5); WBC CLUMPS Few (None Seen)
[2018-05-12 03:38] LABS: MAGNESIUM 1.6 mg/dL (1.8-2.4)
[2018-05-12 03:39] LABS: ALBUMIN 3.4 g/dL (3.4-5.0); CALCIUM 7.2 mg/dL (8.5-10.1); CREATININE 0.9 mg/dL (0.6-1.3); POTASSIUM 4.2 mmol/L (3.5-5.1); TOTAL BILIRUBIN 0.2 mg/dL (<0.1-1.0); TOTAL PROTEIN 6.9 g/dL (6.4-8.2)
[2018-05-12 07:33] LABS: AMP/METHAMP Negative (Negative); BARBITURATES Negative (Negative); BENZODIAZEPINES Negative (Negative); COCAINE Negative (Negative); METHADONE Negative (Negative); OPIATES Negative (Negative); PCP Negative (Negative); THC Negative (Negative)
[2018-05-12 08:41] LABS: APTT 19.1 Seconds (25.0-31.3); PROTIME 10.1 Seconds (9.20-11.50)
[2018-05-12 08:44] LABS: ALBUMIN 3.4 g/dL (3.4-5.0); ALKALINE PHOSPHATASE 77 U/L (46-116); ANION GAP 11 mmol/L (7-16); BUN 10 mg/dL (7-18); CALCIUM 7.4 mg/dL (8.5-10.1); CHLORIDE 106 mmol/L (98-107); CO2 22 mmol/L (21-32); GLUCOSE 245 mg/dL (70-99); MAGNESIUM 2.2 mg/dL (1.8-2.4); PHOSPHORUS* 1.1 mg/dL (2.5-4.9); POTASSIUM 4.2 mmol/L (3.5-5.1); SGOT 112 U/L (15-37); SGPT 69 U/L (30-65); SODIUM 139 mmol/L (136-145); TOTAL BILIRUBIN 0.5 mg/dL (<0.1-1.0); TOTAL PROTEIN 6.6 g/dL (6.4-8.2)
[2018-05-12 08:45] LABS: ABSOLUTE EOSINOPHILS 0.1 thou/uL (0.0-0.7); ABSOLUTE LYMPHOCYTES 1.4 thou/uL (0.8-5.3); ABSOLUTE MONOCYTES 0.4 thou/uL (0.0-1.2); ABSOLUTE NEUTROPHILS 3.1 thou/uL (1.6-8.1); BASOPHILS 0.5 %; EOSINOPHILS 1.1 %; HEMATOCRIT 33.4 % (37.0-47.0); LYMPHOCYTES 29.2 %; MCH 30.4 pg (26.0-34.0); MCHC 32.9 g/dL (28.0-37.0); MCV 92.4 fL (80.0-100.0); MONOCYTES 7.4 %; MPV 7.8 fl. (7.2-11.1); NUCLEATED RBCS 0 /100WBC; POLYS 61.8 %; RBC 3.61 mil/uL (4.20-5.00); RDW-CV 15.7 % (10.5-14.5); WBC 4.9 thou/uL (4.0-11.0)
[2018-05-12 08:47] LABS: PLATELET COUNT* 190 thou/uL (150-400)
[2018-05-12 08:52] LABS: AMMONIA < 10 umol/L (11-32)
--- NOTE | 2018-05-12 12:56 | EKG ---
[place] [address] ELECTROCARDIOGRAM REPORT Name: SOFINORMANPawan CASTILLO Room: [address] ADM IN M.R.#: [id number] Admission: 05/11/18 Attend Phys: Lucho Marroquin, Discharge: Date of : 62 Report #: [id number] THIS REPORT FOR: //name// [facility] Test Date: 2018-05-12 Test Time: 08:12:54 Pat Name: NANY FARAH Department: Room: [address] Gender: F Playground Equipment Erector: LETY : 1960 Requested By: Lucho Marroquin Order Number: [id number] Reading MD: Pritesh Cuevas Measurements Intervals [place] Rate: 82 P: 46 [place]: 146 QRS: -15 QRSD: 94 T: 16 QT: 429 QTc: 501 Interpretive Statements Sinus rhythm Borderline left axis deviation Borderline low voltage, extremity leads Abnormal T, consider ischemia, anterior leads Compared to ECG 01/07/2018 18:21:38 T-wave abnormality now present Possible ischemia now present Sinus tachycardia no longer present Electronically Signed On 05-12-2018 12:56:42 CDT by Pritesh Cuevas [email or web address] <ELECTRONICALLY SIGNED> By: Pritesh Cuevas MD, [facility] 05/12/18 1256 1 0812 Pritesh Cuevas MD, [facility] /EPI
[2018-05-13] VITALS (13 sets, daily range): BP systolic 94–132; BP diastolic 50–87
[2018-05-13 05:26] LABS: HEMATOCRIT 34.6 % (37.0-47.0); HEMOGLOBIN 11.5 gm/dL (12.0-15.0); MCH 30.7 pg (26.0-34.0); MCHC 33.1 g/dL (28.0-37.0); MPV 7.4 fl. (7.2-11.1); RBC 3.73 mil/uL (4.20-5.00); RDW-CV 16.6 % (10.5-14.5); WBC 3.7 thou/uL (4.0-11.0)
[2018-05-13 05:41] LABS: ALBUMIN 2.8 g/dL (3.4-5.0); CALCIUM 7.4 mg/dL (8.5-10.1); CREATININE 0.8 mg/dL (0.6-1.3); MAGNESIUM 1.7 mg/dL (1.8-2.4); PHOSPHORUS* 1.2 mg/dL (2.5-4.9); POTASSIUM 3.4 mmol/L (3.5-5.1); TOTAL BILIRUBIN 0.8 mg/dL (<0.1-1.0); TOTAL PROTEIN 5.9 g/dL (6.4-8.2)
[2018-05-14 00:05] VITALS: BP 118/78
[2018-05-14 04:00] VITALS: BP 119/76
[2018-05-14 07:55] LABS: ALBUMIN 2.8 g/dL (3.4-5.0); CALCIUM 7.7 mg/dL (8.5-10.1); CREATININE 0.5 mg/dL (0.6-1.3); MAGNESIUM 1.5 mg/dL (1.8-2.4); PHOSPHORUS* 1.4 mg/dL (2.5-4.9); TOTAL BILIRUBIN 0.7 mg/dL (<0.1-1.0); TOTAL PROTEIN 5.8 g/dL (6.4-8.2)
[2018-05-14 07:58] LABS: POTASSIUM 2.7 mmol/L (3.5-5.1)
[2018-05-14 08:40] VITALS: BP 109/76
[2018-05-14] MEDS ORDERED: VITAMIN B-1100 M1 PO (10:10)
[2018-05-14] MEDS ORDERED: CEFUROXIME250 MG PO (10:10)
[2018-05-14 12:00] VITALS: BP 110/74
[2018-05-14 13:36] VITALS: BP 110/74
--- NOTE | 2018-05-16 13:22 | CON ---
[address] [address] CONSULTATION Name: NANY FARAH Room: [address] IN .R.#: [id number] Admission: 05/11/18 Attend Phys: Lucho Marroquin, Discharge: 05/14/18 Date of : 62 Report #: [id number] THIS REPORT FOR: //name// CC: Sonu Marroquin HISTORY OF PRESENT ILLNESS: This is a 58-year-old female with past medical history significant for alcohol abuse who is presenting with acute alcohol intoxication. GI service has been consulted to evaluate the presence of cirrhosis. The patient reports that she was on a heavy binge for the last 2 days, drinking three-fifths of bourbon every day. She reports heavy alcohol use for the last 20 years. The patient has a past medical history of depression, anxiety and hyperlipidemia in addition to her history of alcohol abuse. The patient is currently somnolent and answers, but has to be awakened for questions. The patient denies prior history of episodes of confusion, hematemesis, abdominal distention. The patient denies any significant abdominal pain, nausea, vomiting or diarrhea at this time. PAST MEDICAL HISTORY: History of alcohol abuse for 20 years, hyperlipidemia, osteoporosis, reflux disease, depression, anxiety. PAST SURGICAL HISTORY: Nonsignificant. FAMILY HISTORY: No history of colon cancer or any GI malignancies. SOCIAL HISTORY: The patient denies smoking or recreational drug use. Her alcohol abuse is outlined in the HPI. REVIEW OF SYSTEMS: The patient is somnolent; therefore obtaining review of systems is a little difficult. PHYSICAL EXAMINATION: VITAL SIGNS: Temperature 36.7, pulse rate 82, respirations 16, blood pressure 103/66, pulse ox 100%. GENERAL: The patient is somnolent, but oriented to time and place when aroused. HEENT: There is no scleral icterus. Pupils are equally reactive to light. Mucous membranes appear moist. There is no congestion. NECK: Supple. There is no supraclavicular lymphadenopathy. No evidence of spider angiomata on the upper extremities or neck. CARDIOVASCULAR: Rate and rhythm regular, S1, S2 present. LUNGS: Clear to auscultation bilaterally. ABDOMEN: Soft. There is no distention, tenderness or organomegaly. Bowel sounds are present. EXTREMITIES: Warm, well perfused. There is no pitting edema. NEUROLOGIC: There [place] [address] CONSULTATION Name: NANY FARAH Room: [address]#: [id number] Admission: 05/11/18 Attend Phys: Lucho Marroquin, Discharge: 05/14/18 Date of : 62 Report #: [id number] SKIN: Appears normal without icterus. LABORATORY DATA: Sodium 139, potassium 4.2, chloride 106, bicarbonate 22, BUN 10, creatinine 1, total bilirubin 0.5, AST 112, ALT 69, alkaline phosphatase 77. Lipase 105. ASSESSMENT AND PLAN: A 58-year-old female with past medical history of heavy alcohol abuse for the last 20 years, presenting with acute alcohol intoxication. The patient has been admitted to the ICU for possible alcohol withdrawal. GI service has been consulted for evaluation of possible cirrhosis. Objectively, the patient does not have any signs of end-stage liver disease such as encephalopathy, asterixis, spider angiomata, or ascites. Her last abdominal ultrasound performed in December of this year did not demonstrate nodular liver, although hepatic steatosis possibly from alcohol use was noted. A relatively preserved platelet count and INR also indicate a normal liver synthetic function. I will obtain ultrasound of the liver to see if she has obvious nodular contour and hence cirrhosis. Continue management of acute alcohol intoxication and possible withdrawal per primary team. <ELECTRONICALLY SIGNED> By: Roque Muhammad MD 05/16/18 1322 1511 [id number] Muhammad MD /nt
== END 2018-05-14 15:00 | disposition home or self-care (01) | DRG 432 ==
LOC: M.ERS 21:29 → M.3W 23:03 → M.TBA-ER 23:03 → M.ICU 23:03 → M.3W 05-13 19:55
PROVIDERS: Emergency Medicine; Internal Medicine; ADMIT Family Medicine
DX: K70.10 Alcoholic hepatitis without ascites (principal); N17.0 Acute kidney failure with tubular necrosis; E44.0 Moderate protein-calorie malnutrition; E87.2 Acidosis; F10.229 Alcohol dependence with intoxication, unspecified; Y90.6 Blood alcohol level of 120-199 mg/100 ml; E86.0 Dehydration; E78.5 Hyperlipidemia, unspecified; M81.0 Age-related osteoporosis without current pathological fracture; K21.9 Gastro-esophageal reflux disease without esophagitis; F32.9 Major depressive disorder, single episode, unspecified; F41.9 Anxiety disorder, unspecified; K70.30 Alcoholic cirrhosis of liver without ascites; E83.39 Other disorders of phosphorus metabolism; K70.0 Alcoholic fatty liver; Z79.899 Other long term (current) drug therapy; Z68.31 Body mass index [BMI] 31.0-31.9, adult

== ENCOUNTER 2018-06-04 08:30 | Inpatient (IN) | payer OTHER ==
[~2018-06-04] VITALS: Ht 170.2 cm; Wt 89.4 kg
[2018-06-04] VITALS (20 sets, daily range): BP systolic 95–141; BP diastolic 58–107
[~2018-06-04 08:30] MED LIST changes: +CEFUROXIME250 MG PO
--- NOTE | 2018-06-04 09:07 | NUR ---
VINI NEWMAN FROM [facility] HERE TO DO A PICC LINE
--- NOTE | 2018-06-04 10:26 | NUR ---
CONSULTED TO PLACE PICC FOR ED PT. CONSENT MEDICAL NECESSITY PER DR. NG. RIGHT UPPER ARM ASSESSED AND RIGHT BASILIC IDENTIFIED AND NOTED TO BE WIDLEY PATENT. DUAL LUMAN PICC PLACED PER HOSPITAL POLICY. LINE TRIMMED AT 42CM AND ADVANCED TO 0CM EXTERNAL. UNABLE TO CLEAR WITH SHERLOCK 3CG SO STAT CHEST X-RATY DONE. PER DR. VELÁSQUEZ PICC TIP AT ATRIAL SVC JUNCTION. LINE RELEASED FOR USE. PRIMARY ED NURSING AWARE.
[2018-06-04 10:34] LABS: HEMATOCRIT 42.1 % (37.0-47.0); HEMOGLOBIN 12.5 gm/dL (12.0-15.0); MCH 29.7 pg (26.0-34.0); MCHC 29.6 g/dL (28.0-37.0); MCV 100.4 fL (80.0-100.0); MPV 8.1 fl. (7.2-11.1); NUCLEATED RBCS 0 /100WBC; PLATELET COUNT* 438 thou/uL (150-400); RDW-CV 19.1 % (10.5-14.5)
[2018-06-04 10:40] LABS: APTT 27.6 Seconds (25.0-31.3); PROTIME 10.2 Seconds (9.20-11.50)
[2018-06-04 10:45] LABS: ANION GAP 42 mmol/L (7-16); BUN 15 mg/dL (7-18); CALCIUM 8.7 mg/dL (8.5-10.1); CHLORIDE 96 mmol/L (98-107); CREATININE 2.9 mg/dL (0.6-1.3); GLUCOSE 115 mg/dL (70-99); POTASSIUM 4.1 mmol/L (3.5-5.1); SODIUM 143 mmol/L (136-145)
[2018-06-04 10:52] LABS: ALBUMIN 3.8 g/dL (3.4-5.0); ALKALINE PHOSPHATASE 142 U/L (46-116); LIPASE 420 U/L (73-393); SGOT 435 U/L (15-37); SGPT 179 U/L (30-65); TOTAL BILIRUBIN 0.9 mg/dL (<0.1-1.0); TOTAL PROTEIN 7.9 g/dL (6.4-8.2); TROPONIN-I LEVEL <0.06 ng/mL (<0.06)
[2018-06-04 10:54] LABS: CO2 < 5 mmol/L (21-32)
[2018-06-04 11:02] LABS: ABSOLUTE BASOPHILS 0.2 thou/uL (0.0-0.2); ABSOLUTE LYMPHOCYTES 1.9 thou/uL (0.8-5.3); ABSOLUTE MONOCYTES 0.6 thou/uL (0.0-1.2); ABSOLUTE NEUTROPHILS 16.3 thou/uL (1.6-8.1); MYELOCYTES 1 %
[2018-06-04 11:03] LABS: ANISOCYTOSIS 1+; MACROCYTES 1+; PLATELET ESTIMATE INCREASED; POIKILOCYTOSIS 1+
[2018-06-04 11:26] LABS: BE -32.8 mmol/L (-2 to +3)
[2018-06-04 11:37] LABS: pH 6.757 (7.340-7.450)
[2018-06-04 11:39] LABS: HCO3 1.4 mmol/L (22.0-26.0); PCO2 < 17.0 mmHg (35.0-45.0); PO2 163.2 mmHg (75.0-100.0)
[2018-06-04 11:40] LABS: URINE BILIRUBIN NEGATIVE (Negative); URINE BLOOD 1+ (Negative); URINE CLARITY CLEAR; URINE COLOR YELLOW; URINE GLUCOSE-RANDOM NEGATIVE (Negative); URINE KETONES 2+ (Negative); URINE LEUKOCYTES-REFLEX TRACE (Negative); URINE NITRITE-REFLEX NEGATIVE (Negative); URINE PROTEIN 2+ (Negative); URINE SPECIFIC GRAVITY >= 1.030 (1.005-1.030); URINE UROBILINOGEN 0.2 E.U./dl (0.2-1.0)
[2018-06-04 11:46] LABS: AMP/METHAMP Negative (Negative); BARBITURATES Negative (Negative); BENZODIAZEPINES Negative (Negative); COCAINE Negative (Negative); METHADONE Negative (Negative); OPIATES Negative (Negative); PCP Negative (Negative); THC Negative (Negative)
[2018-06-04 11:49] LABS: SQUAMOUS 0-3 Few /LPF (0-3)
[2018-06-04 11:50] LABS: FINE GRANULAR CASTS 0-3 Few /LPF (None Seen); MUCUS 0-3 Light strn/LPF (None Seen); URINE RBC 0-2 Rare /HPF (0-2); URINE WBC-REFLEX 0-5 Rare /HPF (0-5); WBC CLUMPS Few (None Seen)
[2018-06-04 11:51] LABS: CRYSTALS None Seen /LPF (None Seen)
[2018-06-04 12:07] LABS: MAGNESIUM 2.4 mg/dL (1.8-2.4)
[2018-06-04 14:02] LABS: ANION GAP 43 mmol/L (7-16); BUN 15 mg/dL (7-18); CALCIUM 7.3 mg/dL (8.5-10.1); CHLORIDE 104 mmol/L (98-107); CREATININE 2.5 mg/dL (0.6-1.3); GLUCOSE 80 mg/dL (70-99); POTASSIUM 4.4 mmol/L (3.5-5.1); SODIUM 152 mmol/L (136-145)
[2018-06-04 14:05] LABS: CO2 < 5 mmol/L (21-32)
[2018-06-04 14:21] LABS: BE -23.6 mmol/L (-2 to +3)
[2018-06-04 14:24] LABS: HCO3 4.7 mmol/L (22.0-26.0); PCO2 < 17.0 mmHg (35.0-45.0); PO2 135.6 mmHg (75.0-100.0); pH 7.071 (7.340-7.450)
[2018-06-04 16:22] LABS: BE -23.6 mmol/L (-2 to +3); PCO2 VENOUS 17.1 mmHg (41.0-51.0); PO2 VENOUS 55.8 mmHg (35.0-45.0)
[2018-06-04 16:25] LABS: HCO3 4.8 mmol/L (22.0-26.0)
--- NOTE | 2018-06-04 17:11 | EKG ---
[place] [address] ELECTROCARDIOGRAM REPORT Name: NANY FARAH Room: [address] ADM IN M.R.#: [id number] Admission: 06/04/18 Attend Phys: Bassem Richardson MD Discharge: Date of : 62 Report #: [id number] THIS REPORT FOR: //name// [facility] ED Test Date: 2018-06-04 Test Time: 09:42:10 Pat Name: NANY FARAH Department: Room: [facility] Gender: F Imaging Services Director: Faheem BOWLING : 1960 Requested By: Joaquina Smart Order Number: [id number] MD: Artemio Holbrook Measurements Intervals [place] Rate: 116 P: 63 GA: 144 QRS: -63 QRSD: 96 T: 11 QT: 366 QTc: 509 Interpretive Statements Sinus tachycardia Probable left atrial enlargement Left axis deviation Low voltage, precordial leads Abnormal R-wave progression, late transition Prolonged QT interval Baseline wander in lead(s) III Compared to ECG 05/12/2018 08:12:54 Prolonged QT interval now present Sinus rate has increased T-wave abnormality no longer present Possible ischemia no longer present Electronically Signed On 06-04-2018 17:11:37 CDT by Artemio Holbrook [email or web address] <ELECTRONICALLY SIGNED> By: Artemio Holbrook MD, [facility] 06/04/18 1711 1 1 Artemio Holbrook MD, [facility] /EPI
[2018-06-04 17:26] LABS: CALCIUM 6.9 mg/dL (8.5-10.1); CREATININE 2.6 mg/dL (0.6-1.3); POTASSIUM 3.9 mmol/L (3.5-5.1)
[2018-06-04 17:30] LABS: BE -21.7 mmol/L (-2 to +3); HCO3 5.3 mmol/L (22.0-26.0); PCO2 VENOUS 15.9 mmHg (41.0-51.0); PO2 VENOUS 49.6 mmHg (35.0-45.0)
--- NOTE | 2018-06-04 17:30 | NUR ---
PATIENT ADMITTED FROM ER ALERT BTUT DROWSY. SAT ON RA 98% DENIES SOA BUT GRUNTS WHILE BREATHING. BP MAP OF 77 ON 5 MCG LEVOPHED. CO OF SLIGHT UPPER GI DISCOMFORT. FOLLOWS COMMANDS, PROGRESSING,
[2018-06-05] VITALS (22 sets, daily range): BP systolic 109–131; BP diastolic 65–86
[2018-06-05 05:37] LABS: HEMATOCRIT 29.5 % (37.0-47.0); MCH 30.7 pg (26.0-34.0); MPV 7.8 fl. (7.2-11.1); NUCLEATED RBCS 0 /100WBC; RBC 3.27 mil/uL (4.20-5.00); WBC 10.3 thou/uL (4.0-11.0)
[2018-06-05 05:56] LABS: MCV 90.2 fL (80.0-100.0); PLATELET COUNT* 171 thou/uL (150-400)
[2018-06-05 06:54] LABS: ABSOLUTE NEUTROPHILS 10.3 thou/uL (1.6-8.1); ANISOCYTOSIS 1+; METAMYELOCYTES 2 %; PLATELET ESTIMATE ADEQUATE
[2018-06-05 08:09] LABS: CALCIUM 6.3 mg/dL (8.5-10.1)
[2018-06-05 08:32] LABS: CREATININE 3.7 mg/dL (0.6-1.3)
[2018-06-05 08:33] LABS: POTASSIUM 2.6 mmol/L (3.5-5.1)
[2018-06-05 09:27] LABS: CALCIUM 6.6 mg/dL (8.5-10.1); CREATININE 3.8 mg/dL (0.6-1.3)
[2018-06-05 09:27] LABS: BE 9.4 mmol/L (-2 to +3); HCO3 33.2 mmol/L (22.0-26.0); PCO2 42.1 mmHg (35.0-45.0); PO2 73.5 mmHg (75.0-100.0); pH 7.515 (7.340-7.450)
[2018-06-05 09:28] LABS: POTASSIUM 2.8 mmol/L (3.5-5.1)
--- NOTE | 2018-06-05 11:03 | NUR ---
INTERDISICPLINARY ROUNDS: PT KNOWN TO CM FROM PREVIOUS ADMITS. MET WITH PT. STATES SHE HAS BEEN LIVING WITH ONE OF HER SISTERS, EITHER MILLER OR BETO RECENTLY. HAS NOT BEEN WORKING SINCE EARLY APR. ADMITS TO ETOH INTAKE, STATES HAD A FIFTH OF BOURBON OVER 3 DAYS. HAS HX OF BEING SOBER AND THEN RELAPSING RECENTLY. PT IS AWARE OF [facility] ALCOHOL REHAB RESOURCES, HAS BEEN TO REDISCOVER AND TO FACILITY IN [facility] IN PAST. SHE VERBALIZED SHE MAY BE INTERESTED IN GETTING 'HELP' AGAIN. PT REPORTS FEELING 'TERRIBLE' TODAY. OFFERED SUPPORT. CM TO FOLLOW AND MEET WITH PT AGAIN TO DISCUSS FURTHER
[2018-06-05 13:03] LABS: HEMATOCRIT 33.2 % (37.0-47.0); HEMOGLOBIN 11.2 gm/dL (12.0-15.0); MCH 30.4 pg (26.0-34.0); MCHC 33.7 g/dL (28.0-37.0); MCV 90.2 fL (80.0-100.0); MPV 7.9 fl. (7.2-11.1); RBC 3.69 mil/uL (4.20-5.00); RDW-CV 16.9 % (10.5-14.5)
[2018-06-05 13:15] LABS: CALCIUM 6.9 mg/dL (8.5-10.1); CREATININE 4.1 mg/dL (0.6-1.3); PHOSPHORUS* 0.5 mg/dL (2.5-4.9); TOTAL BILIRUBIN 1.3 mg/dL (<0.1-1.0); TOTAL PROTEIN 6.1 g/dL (6.4-8.2)
[2018-06-05 13:26] LABS: POTASSIUM 2.1 mmol/L (3.5-5.1)
--- NOTE | 2018-06-05 16:45 | NUR ---
PT CARE ASSUMED AFTER REPORT. ST ON MONITOR. PT A/O X4. CONFUSED AND FORGETFUL AT TIMES. O2 2L NC. PRN PAIN AND ANXIETY MEDS GIVEN PER PT REQUESTS. PAYNE TO DD WITH LITTLE OUTPUT. FALL PRECAUTIONS IN PLACE INCLUDING BED ALARM. NOT PROGRESSING TOWARDS GOALS.
[2018-06-05 20:06] LABS: PHOSPHORUS* 1.8 mg/dL (2.5-4.9)
[2018-06-05 20:09] LABS: POTASSIUM 2.9 mmol/L (3.5-5.1)
--- NOTE | 2018-06-05 21:46 | NUR ---
INITAL ASSESSMENT COMPLETED AT 1930. PT'S CIWAS SCORE AT THAT TIME > 12. PT GIVEN 1 MG ATIVAN IV AT 1940. AT THIS TIME [T'S CIWA SCORE > 15. DR ALVARADO NOTIFIED. ORDERS RECIEVED. DR KHALIL NOTIFIED OF CRITICAL PHOSPHORUS AND POTASSIUM LEVEL. REPLACEMENT ORDERS RECIEVED.
[2018-06-06] VITALS (20 sets, daily range): BP systolic 104–144; BP diastolic 73–101
[2018-06-06 05:34] LABS: ABSOLUTE BASOPHILS 0.1 thou/uL (0.0-0.2); ABSOLUTE EOSINOPHILS 0.1 thou/uL (0.0-0.7); ABSOLUTE LYMPHOCYTES 1.5 thou/uL (0.8-5.3); ABSOLUTE MONOCYTES 0.3 thou/uL (0.0-1.2); ABSOLUTE NEUTROPHILS 4.2 thou/uL (1.6-8.1); BASOPHILS 1.1 %; EOSINOPHILS 2.2 %; HEMATOCRIT 28.6 % (37.0-47.0); HEMOGLOBIN 9.7 gm/dL (12.0-15.0); LYMPHOCYTES 24.3 %; MCH 30.4 pg (26.0-34.0); MCHC 33.9 g/dL (28.0-37.0); MCV 89.6 fL (80.0-100.0); MONOCYTES 5.1 %; MPV 7.9 fl. (7.2-11.1); NUCLEATED RBCS 0 /100WBC; PLATELET COUNT* 125 thou/uL (150-400); POLYS 67.3 %; RBC 3.19 mil/uL (4.20-5.00); RDW-CV 17.1 % (10.5-14.5); WBC 6.3 thou/uL (4.0-11.0)
[2018-06-06 05:43] LABS: ALBUMIN 2.4 g/dL (3.4-5.0); CALCIUM 6.8 mg/dL (8.5-10.1); CREATININE 4.6 mg/dL (0.6-1.3); TOTAL BILIRUBIN 0.9 mg/dL (<0.1-1.0); TOTAL PROTEIN 5.2 g/dL (6.4-8.2)
[2018-06-06 05:44] LABS: POTASSIUM 4.2 mmol/L (3.5-5.1)
[2018-06-06 06:56] LABS: PHOSPHORUS* 3.2 mg/dL (2.5-4.9)
[2018-06-06 21:07] LABS: GLYCOHEMOGLOBIN (HGB A1C) 5.2 % (4.8-5.6)
[2018-06-07] VITALS (16 sets, daily range): BP systolic 126–152; BP diastolic 81–108
[2018-06-07 05:36] LABS: ABSOLUTE BASOPHILS 0.1 thou/uL (0.0-0.2); ABSOLUTE EOSINOPHILS 0.1 thou/uL (0.0-0.7); ABSOLUTE LYMPHOCYTES 1.1 thou/uL (0.8-5.3); ABSOLUTE MONOCYTES 0.2 thou/uL (0.0-1.2); ABSOLUTE NEUTROPHILS 2.5 thou/uL (1.6-8.1); BASOPHILS 1.4 %; EOSINOPHILS 3.7 %; HEMATOCRIT 27.7 % (37.0-47.0); HEMOGLOBIN 9.3 gm/dL (12.0-15.0); LYMPHOCYTES 27.8 %; MCH 30.1 pg (26.0-34.0); MCHC 33.5 g/dL (28.0-37.0); MONOCYTES 5.9 %; MPV 8.1 fl. (7.2-11.1); NUCLEATED RBCS 0 /100WBC; PLATELET COUNT* 85 thou/uL (150-400); POLYS 61.2 %; RBC 3.08 mil/uL (4.20-5.00); RDW-CV 16.6 % (10.5-14.5)
[2018-06-07 05:56] LABS: ALBUMIN 2.1 g/dL (3.4-5.0); CALCIUM 7.9 mg/dL (8.5-10.1); CREATININE 6.1 mg/dL (0.6-1.3); POTASSIUM 3.6 mmol/L (3.5-5.1); TOTAL BILIRUBIN 0.9 mg/dL (<0.1-1.0); TOTAL PROTEIN 5.1 g/dL (6.4-8.2)
[2018-06-07 06:39] LABS: PREALBUMIN 14.9 mg/dL (18.0-35.7)
--- NOTE | 2018-06-07 09:13 | CON ---
[address] [address] CONSULTATION Name: NANY FARAH Room: [address] IN M.R.#: [id number] Admission: 06/04/18 Attend Phys: Bassem Richardson MD Discharge: Date of : 62 Report #: [id number] THIS REPORT FOR: //name// CC: Bassem Mejia DATE OF SERVICE: 06/05/2018 REQUESTING PHYSICIAN: Bassem Richardson MD REASON FOR CONSULTATION: Acute kidney injury. HISTORY OF PRESENT ILLNESS: The patient is a 58-year-old female with medical history significant for severe alcoholism with multiple attempts of detoxification in the past, but unfortunately unsuccessful. She presents to the hospital on 06/04/2018 with complaints of abdominal pain. She was intoxicated. Alcohol level was high. She also was reporting that she has not been eating and drinking much for several days due to abdominal pain. She was found to be in acute kidney injury and severe lactic acidosis, was found to have severe hypophosphatemia, which yesterday was reported incorrectly, phosphorus was high today was drawn correctly and phosphorus was 0.5. So, she is malnourished. She also was found to have alcoholic damage to the liver and alcoholic pancreatitis, started on IV fluids. Her urine output was 450 mL in the last 24 hours. Her creatinine went up from 2.9-4.1, carbon dioxide went up from less than 5-37, bicarb drip was stopped. She is receiving banana bag. She is also receiving some replacement for potassium and now ordered replacement for low phosphorus. Her CPK was checked and it was 553. PAST MEDICAL HISTORY: Significant for alcoholism, alcoholic liver damage. SOCIAL HISTORY: Positive for alcoholism. FAMILY HISTORY: Noncontributory. REVIEW OF SYSTEMS: Positive for abdominal pain, discomfort and low energy level, low urine output. She has some vomiting with blood and GI is on the case. PHYSICAL EXAMINATION: GENERAL: She is awake, alert. VITAL SIGNS: Blood pressure now is 130/86, heart rate is 115, respiratory rate is 20, afebrile. HEENT: [place] [address] CONSULTATION Name: NANY FARAH Room: [address] IN [facility]#: [id number] Admission: 06/04/18 Attend Phys: Bassem Richardson MD Discharge: Date of : 62 Report #: [id number] NECK: Supple. LUNGS: Decreased air movement. CARDIOVASCULAR: Tachycardia. ABDOMEN: Slightly tender in periumbilical area and epigastric area. LOWER EXTREMITIES: No edema. LABORATORY REPORT: As I mentioned earlier. ASSESSMENT: A 58-year-old female with alcoholism, admitted with lactic ketoacidosis, starvation acidosis, acute kidney injury, acute pancreatitis and also liver damage due to alcoholism. She had 450 mL of urine output since admission. The phosphorus level is very low, that will be replaced. Her potassium level is low. Her magnesium level was 2.4 on admission, surprisingly normal for alcoholic. PLAN: Just replace potassium, replace phosphorus. Monitor urine output, monitor renal function. There is no need for immediate dialysis; however, her acute kidney injury will have to be followed carefully and there is a possibility there may have to put her on dialysis. Discussed that with nurse and with the patient. Prognosis is guarded given her chronicity of the problem. She has been alcoholic for many years and she failed to stop drinking in the past. <ELECTRONICALLY SIGNED> By: Donnell Carmichael MD 06/07/18 0913 1431 [id number] Carmichael MD /[facility]
--- NOTE | 2018-06-07 10:32 | NUR ---
INTERDISCIPLINARY ROUNDS: PT.SLEEPING. DID NOT AWAKEN. CIWA WAS 12 THIS AM. CREAT.UP. RENAL ON CASE. PLATLETS DOWN. HEMATOLOGY CONSULT. CM WILL CONTINUE TO FOLLOW AND ASSIST WITH DISCHARGE PLANNING.
--- NOTE | 2018-06-07 10:55 | NUR ---
ASSUMED PT CARE 0730. PT A/O X'S 4. AFEBRILE. VSS. PT C/O OF HEADACHE AND STOMACHE PAIN AND GENEARLIZED BODY PAIN. PRN PO MEDICATION ADMINISTERED PER EMAR. CIWA ASSESSED AND CHARTED SCORE OF 12. PRN ATIVAN ADMINISTERED. PT C/O OF NAUSEA, PRN ZOFRAN ADMININSTERED PER EMAR. PT ENCOURAGED TO EAT FOOD PER DR ALVARADO. PT ENCOURAGED TO DRINK FLUIDS PER NEPHROLOGY. PT VERBALIZES UNDERSTANDING. WILL CONTINUE TO MONITOR I'S AND O'S PER NEPHROLOGY. WILL CONTINUE PLAN OF CARE.
--- NOTE | 2018-06-07 11:13 | NUR ---
HEMATOLOGY CONSULT PLACED. HEMATOLOGY CALLED AT [phone] AT [phone]. NO ANSWER AND VOICEMAIL SPECIFICALLY STATED "DO NOT LEAVE CONSULTS, PLEASE CALL US BACK". CALLED 2 X'S.
--- NOTE | 2018-06-07 13:00 | NUR ---
PER NEPHROLOGY PT TO HAVE DIALYSIS SUNDAY OR SUNDAY. ASKED NEPHROLOGY IF THEY WOULD WANT TO PUT IN TEMPORARY DIALYSIS LINE. NEPHROLOGY STATED NO, LABS ORDERED IN AM, WILL ASSESS. IF PT DOES NOT NEED DIALYSIS DOES NOT WANT AN UNNECESSARY LINE IN.
--- NOTE | 2018-06-07 23:26 | NUR ---
INITAL ASSESMENT COMPLETED AT 1930. PT RESTING WITH OU CLOSED AT THAT TIME. PT OPENS EYES WHEN ENTERING ROOM. PT PLEASANTLY CONFUSED, FOLLOWS COMMANDS AND RESPONDS APPROPRIATELY. PT REPORTED UNRESOLVED NAUSEA. DR LUCIANO NOTIFIED. RESCIEVED ORDER FOR PRN COMPAZINE.
[2018-06-08] VITALS (25 sets, daily range): BP systolic 122–167; BP diastolic 79–122
[2018-06-08 07:07] LABS: ABSOLUTE EOSINOPHILS 0.1 thou/uL (0.0-0.7); ABSOLUTE LYMPHOCYTES 0.7 thou/uL (0.8-5.3); ABSOLUTE MONOCYTES 0.4 thou/uL (0.0-1.2); ABSOLUTE NEUTROPHILS 2.8 thou/uL (1.6-8.1); BASOPHILS 0.4 %; EOSINOPHILS 2.7 %; HEMATOCRIT 27.7 % (37.0-47.0); HEMOGLOBIN 9.4 gm/dL (12.0-15.0); LYMPHOCYTES 16.7 %; MCH 30.6 pg (26.0-34.0); MCHC 33.9 g/dL (28.0-37.0); MCV 90.2 fL (80.0-100.0); MONOCYTES 8.9 %; MPV 8.5 fl. (7.2-11.1); NUCLEATED RBCS 0 /100WBC; PLATELET COUNT* 75 thou/uL (150-400); POLYS 71.3 %; RBC 3.07 mil/uL (4.20-5.00); RDW-CV 16.9 % (10.5-14.5)
[2018-06-08 07:16] LABS: ALBUMIN 2.1 g/dL (3.4-5.0); ALKALINE PHOSPHATASE 134 U/L (46-116); AMMONIA < 10 umol/L (11-32); ANION GAP 8 mmol/L (7-16); BUN 47 mg/dL (7-18); CALCIUM 8.8 mg/dL (8.5-10.1); CHLORIDE 95 mmol/L (98-107); CO2 31 mmol/L (21-32); CREATININE 6.7 mg/dL (0.6-1.3); GLUCOSE 103 mg/dL (70-99); POTASSIUM 4.3 mmol/L (3.5-5.1); SGOT 89 U/L (15-37); SGPT 80 U/L (30-65); SODIUM 134 mmol/L (136-145); TOTAL PROTEIN 5.1 g/dL (6.4-8.2)
--- NOTE | 2018-06-08 09:33 | NUR ---
5865 ASSUMED CARE OF PATIENT. PLEASE SEE DOCUMENTED ASSESSMENT AND CIWA CHARTING. PT C/O NAUSEA. DISCUSSED OPTIONS AND GOALS WITH PATIENT. PATIENT IS ORIENTED X 3.
--- NOTE | 2018-06-08 09:40 | NUR ---
0900 TOOK ABOUT 15% OF BREAKFAST. SAID SHE FELT FULL. WILL LEAVE HEAD OF BED UP FOR AT LEAST 30 MINUTES. PATIENT TOOK ORAL MEDICATIONS.
[2018-06-08 10:00] LABS: APTT 26.6 Seconds (25.0-31.3); PROTIME 9.9 Seconds (9.20-11.50)
--- NOTE | 2018-06-08 10:48 | NUR ---
DR UNGER HERE TO SEE PATIENT
[2018-06-08 13:33] LABS: URINE BILIRUBIN NEGATIVE (Negative); URINE BLOOD 3+ (Negative); URINE CLARITY CLEAR; URINE COLOR YELLOW; URINE GLUCOSE-RANDOM NEGATIVE (Negative); URINE KETONES NEGATIVE (Negative); URINE LEUKOCYTES-REFLEX 1+ (Negative); URINE NITRITE-REFLEX NEGATIVE (Negative); URINE PROTEIN 1+ (Negative); URINE UROBILINOGEN 0.2 E.U./dl (0.2-1.0)
[2018-06-08 14:02] LABS: BACTERIA-REFLEX >30 Many /HPF (None Seen); CASTS None Seen /LPF (None Seen); SQUAMOUS 0-3 Few /LPF (0-3); URINE RBC 3-10 Few /HPF (0-2); URINE WBC-REFLEX 0-5 Rare /HPF (0-5)
[2018-06-08 14:03] LABS: CRYSTALS None Seen /LPF (None Seen); YEAST-REFLEX Present (None Seen)
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
[2018-06-08 15:17] LABS: % SATURATION 44 % (20-39); IRON 57 ug/dL (50-175)
--- NOTE | 2018-06-08 17:48 | NUR ---
PATIENT PROGRESSING TOWARDS GOALS. CIWA SCORING AT 8 ALL SHIFT. ATIVAN GIVEN ONCE PER PT REQUEST FOR ANXIETY. VSS. LABS NOTED. NEPHRO FOLLOWING AND NOT RECOMMENDING DIALYSIS. STARTED 24 HOUR URINE COLLECTION. WORKED WITH PHYSICAL THERAPY AND STOOD AT BEDSIDE. NO VISITORS BUT MOTHER HAS CALLED AND SPOKEN WITH PATIENT.
[2018-06-08 21:08] LABS: IgA 131 mg/dL (87-352); IgG 647 mg/dL (700-1600); IgM 77 mg/dL (26-217)
[2018-06-09] VITALS (24 sets, daily range): BP systolic 125–156; BP diastolic 82–111
--- NOTE | 2018-06-09 04:54 | NUR ---
PT CURRENTLY RESTING IN BED. PT SR ON MONITOR. PT ON 2L NC SATS 97% PT HAS REQUIRED DOSES OF ATIVAN, OXY FOR PAIN, ZOFRAN AND COMPAZINE. PT AFEBRILE. AM LABS TO BE DRAWN AND REVIEWED. PT CONTINUES WITH MAINTENANCE IVF. CONTINUE WITH 24 URINE.
[2018-06-09 05:14] LABS: HEMATOCRIT 25.8 % (37.0-47.0); HEMOGLOBIN 8.7 gm/dL (12.0-15.0); MCH 30.6 pg (26.0-34.0); MCHC 33.9 g/dL (28.0-37.0); MCV 90.3 fL (80.0-100.0); MPV 8.2 fl. (7.2-11.1); RBC 2.86 mil/uL (4.20-5.00); RDW-CV 16.6 % (10.5-14.5); WBC 4.7 thou/uL (4.0-11.0)
[2018-06-09 05:54] LABS: CALCIUM 9.1 mg/dL (8.5-10.1); MAGNESIUM 2.3 mg/dL (1.8-2.4); PHOSPHORUS* 3.8 mg/dL (2.5-4.9); POTASSIUM 4.1 mmol/L (3.5-5.1); TOTAL BILIRUBIN 0.8 mg/dL (<0.1-1.0); TOTAL PROTEIN 5.1 g/dL (6.4-8.2)
[2018-06-09 05:57] LABS: CREATININE 7.8 mg/dL (0.6-1.3)
--- NOTE | 2018-06-09 09:59 | NUR ---
0733 ASSUMED CARE OF PATIENT. PLEASE SEE DOCUMENTED ASSESSMENT AND CIWA CHARTING. PT MEDICATED FOR NAUSEA
--- NOTE | 2018-06-09 10:01 | NUR ---
UPT OBSC FOR FORMED BROWN STOOL AND BATHED
--- NOTE | 2018-06-09 11:04 | NUR ---
DR UNGER TO SEE PATIENT. 24 HOUR URINE IS COMPLETED
--- NOTE | 2018-06-09 17:09 | NUR ---
PATIENT WITH SOME PROGRESSION TOWARDS GOALS. UP TO BSC FOR BOWEL MOVEMENT. NO ATIVAN REQUIRED THIS SHIFT. ABLE TO EAT SLIGHTLY MORE. 24 HOUR URINE SENT. LABS NOTED, BUT HEMATOLOGY HAS NOT ROUNDED. PT GETS TEARFULWHEN ASKING ABOUT HER KIDNEY CONDITION. MOTHER HAS CALLED
[2018-06-10] VITALS (18 sets, daily range): BP systolic 129–155; BP diastolic 85–110
[2018-06-10 05:41] LABS: HEMATOCRIT 27.8 % (37.0-47.0); HEMOGLOBIN 9.3 gm/dL (12.0-15.0); MCH 30.3 pg (26.0-34.0); MCHC 33.7 g/dL (28.0-37.0); MCV 90.1 fL (80.0-100.0); MPV 9.2 fl. (7.2-11.1); RBC 3.08 mil/uL (4.20-5.00); RDW-CV 17.1 % (10.5-14.5); WBC 6.1 thou/uL (4.0-11.0)
[2018-06-10 05:50] LABS: INR 0.9; PROTIME 9.7 Seconds (9.20-11.50)
[2018-06-10 05:54] LABS: ALBUMIN 2.2 g/dL (3.4-5.0); CALCIUM 9.5 mg/dL (8.5-10.1); CREATININE 8.7 mg/dL (0.6-1.3); MAGNESIUM 2.1 mg/dL (1.8-2.4); PHOSPHORUS* 4.3 mg/dL (2.5-4.9); POTASSIUM 4.2 mmol/L (3.5-5.1); TOTAL BILIRUBIN 0.6 mg/dL (<0.1-1.0); TOTAL PROTEIN 5.6 g/dL (6.4-8.2)
--- NOTE | 2018-06-10 10:30 | NUR ---
INTERDISCIPLINARY ROUNDS: PT.IS TELE STATUS. HER CIWA SCORE IS 12. RN SAID SHE WAS GOING TO GET PT.UP IN CHAIR TO TRY TO INCREASE HER ACTIVITY. ONCE MORE ALERT, CM WILL DISCUSS ALCOHOL REHAB INFORMATION WITH PT.
--- NOTE | 2018-06-10 12:55 | NUR ---
PT ALERT TO PERSON, PLACE AND SITUATION. AFEBRILE. DISCUSSED WITH GOAL FOR PT TO SIT IN CHAIR. PT SAT IN CHAIR FOR 30 MIN. PT C/O OF NAUSEA. ZOFRAN, COMEZINE, AND SCOPALAMINE PATCH ORDERED AND ADMININSTERED PER OCT. EMESIS OF 50ML 1 TIME. WILL CONTINUE PLAN OF CARE.
--- NOTE | 2018-06-10 18:14 | NUR ---
TEMPORARY DIALYSIS CATHETER PLACED BY DR WELLER. RECEIVED OKAY TO USE CATHETER BY DR WELLER. ENTERPRISE SALES EXECUTIVE NOTIFIED THAT CATHETER IN PLACE AND PT READY FOR DIALYSIS. PT ATTEMPTING TO EAT FIRST MEAL THIS EVENING. PT NAUSEATED THIS SHIFT. ONLY ONE EPISODE OF EMESIS REFER TO PREVIOUS NOTE.
[2018-06-11] VITALS (17 sets, daily range): BP systolic 134–158; BP diastolic 94–112
--- NOTE | 2018-06-11 03:19 | NUR ---
ASSUMED CARE OF PATIENT AT 1900. VSS, AFEBRILE. C/O CHRONIC HEADACHE THAT IS ALWAYS A "10". STATES SHE DRINKS BECAUSE SHE IS LONELY, IS CONSIDERING GOING TO AA DAILY WHEN DISCHARGED. PAIN MEDICINE GIVEN ORDERED. NAUSEA MEDS X1. CIWAA SCORE REMAINS LOW. TOLERATED 2 HOURS OF DIALYSIS, PLANS FOR DIALYSIS IN AM WELL. PROGRESSING SLOWLY TOWARDS POC GOALS.
[2018-06-11 06:28] LABS: HEMATOCRIT 24.5 % (37.0-47.0); HEMOGLOBIN 8.2 gm/dL (12.0-15.0); MCH 30.3 pg (26.0-34.0); MCHC 33.6 g/dL (28.0-37.0); MCV 90.2 fL (80.0-100.0); MPV 9.1 fl. (7.2-11.1); NUCLEATED RBCS 0 /100WBC; PLATELET COUNT* 91 thou/uL (150-400); RBC 2.72 mil/uL (4.20-5.00); RDW-CV 17.1 % (10.5-14.5)
[2018-06-11 06:38] LABS: ALBUMIN 2.1 g/dL (3.4-5.0); CALCIUM 8.9 mg/dL (8.5-10.1); CREATININE 6.6 mg/dL (0.6-1.3); POTASSIUM 4.2 mmol/L (3.5-5.1); TOTAL BILIRUBIN 0.5 mg/dL (<0.1-1.0); TOTAL PROTEIN 5.3 g/dL (6.4-8.2)
[2018-06-11 06:46] LABS: PREALBUMIN 13.2 mg/dL (18.0-35.7)
[2018-06-11 07:38] LABS: ABSOLUTE EOSINOPHILS 0.1 thou/uL (0.0-0.7); ABSOLUTE LYMPHOCYTES 1.1 thou/uL (0.8-5.3); ABSOLUTE MONOCYTES 0.9 thou/uL (0.0-1.2); ABSOLUTE NEUTROPHILS 2.9 thou/uL (1.6-8.1); ATYPICAL LYMPHS 1 %; METAMYELOCYTES 1 %
[2018-06-11 07:39] LABS: HYPOCHROMASIA 2+; LARGE PLATELETS FEW; PLATELET ESTIMATE DECREASED
[2018-06-11 07:41] LABS: MICROCYTES Occasional
--- NOTE | 2018-06-11 10:45 | NUR ---
LONG CONVERSATION WITH MOTHER AND SISTER,MILLER. THEY WERE VERY CONCERNED ABOUT MARILEE DRINKING PROBLEM BUT ADMIT SHE HAS BEEN AN ALCOHOLIC FOR A LONG TIME. SHE LIVED WITH MILLER AND HER FAMILY FOR THE SUMMER ,AFTER SHE LOST HER APT. SHE WAS ABLE TO GET A JOB AND HOLD IT DOWN WITHOUT DRINKING UNTIL RIGHT AFTER LABOR DAY. THEY HAD JUST MOVED HER INTO A NEW APT.ON LABOR DAY. SHE WORKED THE REST OF THE WEEK AFTER LABOR DAY AND THEN STARTED DRINKING AGAIN. THEY CANNOT UNDERSTAND WHY SHE IS ABLE TO NOT DRINK FOR LONG PERIODS OF TIME AND THEN WHAT TRIGGERS HER TO START AGAIN. THEY DO THINK LONLINESS HAS SOMETHING TO DO WITH IT BUT STATE SHE CANNOT LIVE WITH EITHER OF THEM. THEY STATE SHE IS MANIPULATIVE AT TIMES. SHE COMES ACROSS [employer], [employer]TC AND EVERYONE LIKES HER. THEY ARE WORRIED IF SHE WILL NEED DIALYSIS PERMANTLEY. EXPLAINED TO THEM THAT SHE HAS TO BE AGREEABLE TO ANY DISCHARGE PLAN, WHETHER IT BE INPT. ALCOHOL REHAB OR OUTPT.TX, SHE HAS TO WANT TO BE HELPED. THEY UNDERSTAND. CM WILL DISCUSS DISCHARGE PLANNING WITH PT.SOON WHEN PT.MORE AWAKE AND CIWAS DOWN.
[2018-06-11 10:47] LABS: HEPATITIS B SURFACE AG Negative (Negative)
[2018-06-12] VITALS (14 sets, daily range): BP systolic 127–159; BP diastolic 80–102
--- NOTE | 2018-06-12 05:08 | NUR ---
AAOX4 RESP REG AND UNALBORED SKIN W/D NO ACUTE DISTRESS NOTED. O2 2L BNC INTACT. CIWAS 0 AND 4 THIS SHIFT. FLIGHT DECK OFFICER INTACT WITH ALARMS SET. PT C/O HEADACHE THIS SHIFT AND WAS MEDICATED FOR IT. VSS AND NO ACUTE CHANGES DURING SHIFT. NO C/O N/V THIS SHIFT. PT CAN BE FORGETFUL AT TIMES.PAYNE INTACT AND PATENT DRAINING YELLOW URINE TO BEDSIDE BAG. DIALYSIS CATH INTACT TO RIGHT IJ.
[2018-06-12 08:33] LABS: URINE PROTEIN (MG/DL) 55.9
--- NOTE | 2018-06-12 08:45 | NUR ---
RN RESUMED CARE OF PT THIS AM. A&OX4. VSS. AFEBRILE. PT C/O HEADACHE 8/10 AND NAUSEA THAT IS INTERMITTENT. VERY TEARFUL. PT DENIED WANTING TO GET UP TO CHAIR FOR BREAKFAST. REMAINS IN BED. PT WANTS HEADACHE AND NAUSEA UNDER CONTROL. OTHERWISE WANTS TO MOVE OUT OF ICU.
--- NOTE | 2018-06-12 08:48 | OP ---
[address] [address] OPERATIVE REPORT Name: NANY FARAH Room: [address] IN M.R.#: [id number] Admission: 06/04/18 Attend Phys: Bassem Richardson MD Discharge: Date of : 62 Report #: [id number] THIS REPORT FOR: //name// CC: Bassem Mejia DATE OF SERVICE: 06/08/2018 PREOPERATIVE DIAGNOSES: Acute renal failure with metabolic acidosis, need for hemodialysis. POSTOPERATIVE DIAGNOSES: Acute renal failure with metabolic acidosis, need for hemodialysis. OPERATION: 1. Ultrasound-guided access to right internal jugular vein. 2. Temporary dialysis catheter placement. SURGEON: Greyson Hdz DO. CUSTOMER ACCOUNT EXECUTIVE: ELMO Schwab. ANESTHESIA: Local. ESTIMATED BLOOD LOSS: 10 mL. FLUIDS: None. URINE OUTPUT: None. SPECIMENS: None. IMPLANTS: An 11-[place]ese 15 cm temporary dialysis catheter in the right IJ. FINDINGS: Right IJ was soft, compressible, suitable for access. The catheter was placed without issue, aspirated and flushed well. CLINICAL HISTORY: The patient is a 58-year-old woman with some acute kidney injury with metabolic acidosis in need of dialysis. DETAILS OF PROCEDURE: After consent was obtained, the patient was already in the ICU. Her right neck was prepped and draped in the usual sterile fashion. Timeout was performed identifying correct patient and procedure. Next, the skin and subcutaneous tissue in the right neck were anesthetized with lidocaine anesthetic. The right IJ was accessed with an 18-gauge needle using ultrasound guidance. Then, using Seldinger technique, a wire was [place] [address] OPERATIVE REPORT Name: NANY FARAH Room: [address] IN M.R.#: [id number] Admission: 06/04/18 Attend Phys: Bassem Richardson MD Discharge: Date of : 62 Report #: [id number] incision was made in the right neck. The tract was then dilated and the temporary catheter was placed over the wire, then aspirated and flushed the catheter without issue. Caps were applied. The catheter was then secured to the neck with the StatLock adherent lock. Then sterile dressings applied. All counts reported correct. She tolerated well. The catheter may be used immediately for dialysis needs. <ELECTRONICALLY SIGNED> By: Greyson Hdz DO 06/12/18 0848 1615 [id number] Hdz DO /nt
[2018-06-12 08:51] LABS: HEMATOCRIT 25.1 % (37.0-47.0); HEMOGLOBIN 8.4 gm/dL (12.0-15.0); MCH 30.8 pg (26.0-34.0); MCHC 33.6 g/dL (28.0-37.0); MCV 91.7 fL (80.0-100.0); MPV 9.3 fl. (7.2-11.1); NUCLEATED RBCS 0 /100WBC; PLATELET COUNT* 109 thou/uL (150-400); RBC 2.74 mil/uL (4.20-5.00); RDW-CV 17.6 % (10.5-14.5); WBC 5.4 thou/uL (4.0-11.0)
[2018-06-12 09:01] LABS: ALBUMIN 2.3 g/dL (3.4-5.0); CALCIUM 8.7 mg/dL (8.5-10.1); POTASSIUM 4.1 mmol/L (3.5-5.1); TOTAL BILIRUBIN 0.5 mg/dL (<0.1-1.0)
[2018-06-12 09:02] LABS: CREATININE 4.6 mg/dL (0.6-1.3)
--- NOTE | 2018-06-12 10:20 | NUR ---
INTERDISCIPLINARY ROUNDS: PER NURSING, NEPHROLOGY HOPING DIALYSIS WILL BE ONLY TEMPORARY. PT.SLEEPING. AWAKENED BRIEFLY. ATTEMPTED TO DISCUSS ALCOHOL REHAB INFORMATION. SHE KEPT FALLING ASLEEP. LEFT PACKET FOR HER AND WILL DISCUSS WHEN MORE AWAKE.
--- NOTE | 2018-06-12 10:32 | NUR ---
Nutrition: Pt assessed for LOS. Admitted with ETOH W/D. H/o ARF, ETOH. UTI, gastritis, esophagitis, pancreatitis are better. Usual wt: 185#. Current wt 197#, pt has anasarca. On HD, hopefully only temporary. RX: MVI, folic acid, thiamine. Labs: BG WNL, BUN 25, cr 4.6, alb 2.3, prealb 13.6. Per RN, pt is eating well. Does not seem to want ETOH help. Poor nutrition quality of life can be expected with ETOHism. Recommend continuing MVI at home. No other nutrition interventions needed at this time. Mild risk.
[2018-06-12 11:04] LABS: ABSOLUTE EOSINOPHILS 0.1 thou/uL (0.0-0.7); ABSOLUTE LYMPHOCYTES 2.1 thou/uL (0.8-5.3); ABSOLUTE MONOCYTES 0.5 thou/uL (0.0-1.2); ABSOLUTE NEUTROPHILS 2.8 thou/uL (1.6-8.1); ATYPICAL LYMPHS 3 %
[2018-06-12 11:06] LABS: HYPOCHROMASIA Occasional
[2018-06-12 11:07] LABS: ANISOCYTOSIS 2+; MICROCYTES 2+
[2018-06-12 11:08] LABS: SCHISTOCYTES Occasional; TARGET CELLS Occasional
[2018-06-12 11:09] LABS: PLATELET ESTIMATE DECREASED
--- NOTE | 2018-06-12 16:04 | NUR ---
PT PROGRESSING TOWARDS GOALS. VSS. AFEBRILE. A&O X4. C/O HEADACHE 03/29 AND NAUSEA THROUGHOUT SHIFT, CIWA'S 11, SYMPTOMS IMPROVED WITH PRN ATIVAN. PT WALKED IN [place] WITH PHYSICAL THERAPY. TOLERATING PO INTAKE. PAYNE REMAINS IN PLACE WITH ADEQUATE URINARY OUTPUT.
[2018-06-13] VITALS: BP 146/96
[2018-06-13 02:00] VITALS: BP 155/104
[2018-06-13 04:00] VITALS: BP 164/112
[2018-06-13 04:50] LABS: HEMATOCRIT 24.9 % (37.0-47.0); HEMOGLOBIN 8.4 gm/dL (12.0-15.0); MCH 30.4 pg (26.0-34.0); MCHC 33.6 g/dL (28.0-37.0); MCV 90.4 fL (80.0-100.0); MPV 8.8 fl. (7.2-11.1); NUCLEATED RBCS 0 /100WBC; PLATELET COUNT* 141 thou/uL (150-400); RBC 2.75 mil/uL (4.20-5.00); RDW-CV 17.7 % (10.5-14.5); WBC 5.8 thou/uL (4.0-11.0)
[2018-06-13 05:03] LABS: ALBUMIN 2.3 g/dL (3.4-5.0); CALCIUM 9.1 mg/dL (8.5-10.1); CREATININE 5.5 mg/dL (0.6-1.3); POTASSIUM 3.9 mmol/L (3.5-5.1); TOTAL BILIRUBIN 0.5 mg/dL (<0.1-1.0); TOTAL PROTEIN 5.6 g/dL (6.4-8.2)
[2018-06-13 05:23] LABS: ABSOLUTE BASOPHILS 0.1 thou/uL (0.0-0.2); ABSOLUTE LYMPHOCYTES 1.3 thou/uL (0.8-5.3); ABSOLUTE NEUTROPHILS 3.5 thou/uL (1.6-8.1); ANISOCYTOSIS 1+; HYPOCHROMASIA 1+; PLATELET ESTIMATE DECREASED
[2018-06-13 05:24] LABS: MACROCYTES Occasional
--- NOTE | 2018-06-13 07:20 | NUR ---
PT AAOX4 RESP REG AND UNALBORED SKIN W/D NO ACUTE DISTRESS NOTED. O2 2L BNC INTACT. VSS AND NO ACUTE CHANGES DURING SHIFT. EDUCATIONAL ASSISTANT INTACT WITH ALARMS SET. WILL CONTINUE TO MONITOR
--- NOTE | 2018-06-13 17:49 | NUR ---
PT CARE ASSUMED AFTER REPORT. ASSESSMENT COMPLETE. ST ON MONITOR. PT OBSERVED PICKING AT LINES. PT EDUCATED R/T NEED TO LEAVE LINES AND AND THIER COVERS IN PLACE. PT VERBALIZED UNDRSTANDING BUT CONTINUES TO DO IT. AMBULATED WITH PT TODAY. TOLERATED WELL. PRN PAIN MEDICATION GIVEN PER PT REQUESTS. CT DONE R/T PT C/O CONSTANT HEADACHE. FALL PRECAUTIONS IN PLACE INCLUDING BED ALARM. MOTHER VISITED. PROGRESSING TOWARDS SOME GOALS.
[2018-06-14 03:41] LABS: ABSOLUTE BASOPHILS 0.1 thou/uL (0.0-0.2); ABSOLUTE EOSINOPHILS 0.1 thou/uL (0.0-0.7); ABSOLUTE LYMPHOCYTES 1.5 thou/uL (0.8-5.3); ABSOLUTE MONOCYTES 1.2 thou/uL (0.0-1.2); ABSOLUTE NEUTROPHILS 4.3 thou/uL (1.6-8.1); BASOPHILS 1.5 %; EOSINOPHILS 1.4 %; HEMATOCRIT 24.5 % (37.0-47.0); HEMOGLOBIN 8.1 gm/dL (12.0-15.0); LYMPHOCYTES 20.9 %; MCH 30.3 pg (26.0-34.0); MCHC 33.2 g/dL (28.0-37.0); MCV 91.2 fL (80.0-100.0); MONOCYTES 16.4 %; MPV 8.6 fl. (7.2-11.1); NUCLEATED RBCS 0 /100WBC; PLATELET COUNT* 137 thou/uL (150-400); POLYS 59.8 %; RBC 2.69 mil/uL (4.20-5.00); RDW-CV 17.2 % (10.5-14.5); WBC 7.3 thou/uL (4.0-11.0)
[2018-06-14 03:54] LABS: ALBUMIN 2.3 g/dL (3.4-5.0); CALCIUM 9.2 mg/dL (8.5-10.1); CREATININE 6.1 mg/dL (0.6-1.3); POTASSIUM 3.8 mmol/L (3.5-5.1); TOTAL BILIRUBIN 0.5 mg/dL (<0.1-1.0); TOTAL PROTEIN 5.7 g/dL (6.4-8.2)
[2018-06-14 04:00] VITALS: BP 153/98
[2018-06-14 06:00] VITALS: BP 160/97
--- NOTE | 2018-06-14 06:17 | NUR ---
PT AAOX4 RESP REG AND UNLABORED SKIN W/D NO ACUTE DISTRESS NOTED. CONFLICT RESOLUTION PROFESSIONAL INTACT WITH ALARMS SET. VSS AND NO ACUTE CHANGES DURING SHIFT. PAYNE INTACT AND PATENT DRAINING YELLOW URINE TO BEDSIDE BAG. PT C/O OF HEADACHE THIS SHIFT. WILL CONITNUE TO MONITOR
[2018-06-14 08:00] VITALS: BP 155/107
--- NOTE | 2018-06-14 09:21 | NUR ---
PT TRANSFER TO ROOM 317. REPORT GIVEN TO PATY ARMIJO. ALL PT 3 BELONGINGS SENT WITH PT.
[2018-06-14 16:00] VITALS: BP 154/94
--- NOTE | 2018-06-14 16:30 | NUR ---
ATTEMPTED TO SEE PT. 2 TIMES THIS AFTERNOON. EACH TIME SHE HAD A VISITOR AND ASKED IF I WOULD COME BACK IN 10 MIN. EACH TIME VISITOR WAS STILL PRESENT.
--- NOTE | 2018-06-14 17:05 | NUR ---
PATIENT CAME TO THE FLOOR FROM THE ICU VIA WHEELCHAIR IN STABLE CONDITION. PATIENT COMPLAINING OF VOMITING AND A HEADACHE. AGREE WITH THE ICU NURSES ASSESSMENT, WILL CONTINUE TO MONITOR.
--- NOTE | 2018-06-14 18:57 | NUR ---
PATIENT IS ALERT AND ORIENTED SIMCE COMING UP FROM THE ICU. COMPLAINS OF VOMITING AND PAIN THAT IS NOT WELL CONTROLLED WITH MEDICATIONS, PATIENT HAS BEEN SLEEPING A LOT DURING THE DAY. PAYNE IS IN PLACE FOR STRICT I AND O'S MEASURMENT. VITAL SIGNS HAVE BEEN STABLE ON ROOM AIR. PATIENT IS AGITATED MOST OF THE TIME. CALL LIGHT IS IN REACH, WILL CONTINUE TO MONITOR.
[2018-06-14 22:00] VITALS: BP 147/94
[2018-06-15 04:30] LABS: HEMATOCRIT 23.8 % (37.0-47.0); MCH 30.8 pg (26.0-34.0); MCHC 33.7 g/dL (28.0-37.0); MCV 91.4 fL (80.0-100.0); MPV 8.5 fl. (7.2-11.1); RBC 2.6 mil/uL (4.20-5.00); RDW-CV 17.9 % (10.5-14.5); WBC 7.4 thou/uL (4.0-11.0)
[2018-06-15 04:45] LABS: CALCIUM 9.1 mg/dL (8.5-10.1); CREATININE 5.8 mg/dL (0.6-1.3); MAGNESIUM 1.6 mg/dL (1.8-2.4); POTASSIUM 3.5 mmol/L (3.5-5.1)
--- NOTE | 2018-06-15 05:33 | NUR ---
ALERT AND ORIENTED X4. USED PO ATIVAN TO HELP WITH HEADACHE PER PATIENT REQUEST. PATIENT RESTED QUIETLY ON HOURLY ROUNDS. HAS DIALYSYS CATHETER. UP WITH STAND BY [employer]. CALL LIGHT WITHIN REACH.
[2018-06-15 08:00] VITALS: BP 146/85
[2018-06-15 16:14] VITALS: BP 137/79
--- NOTE | 2018-06-15 18:35 | NUR ---
ASSUMED CARE THIS AM, NO S/S DISTRESS, NO S/S ETOH WITHDRAWL, NO DIALYSIS THIS SHIFT, NO N/V THIS SHIFT SINCE PROVIDING MEDICATION THIS AM. UP W/ THERAPY, MARTIN WELL, HAS NEEDED 2L02NC THIS SHIFT, SHE WAS 88% ON RA THIS MORNING. PLAN OF CARE REVIEWED WITH PATIENT, DENIES QUESTIONS AT THIS TIME, CONT POC.
[2018-06-15 21:38] VITALS: BP 144/93
[2018-06-16] VITALS: BP 138/85
[2018-06-16 03:12] LABS: HEMATOCRIT 23.6 % (37.0-47.0); HEMOGLOBIN 7.9 gm/dL (12.0-15.0); MCH 30.2 pg (26.0-34.0); MCHC 33.5 g/dL (28.0-37.0); MCV 90.1 fL (80.0-100.0); MPV 8.4 fl. (7.2-11.1); RBC 2.62 mil/uL (4.20-5.00); RDW-CV 17.8 % (10.5-14.5); WBC 7.3 thou/uL (4.0-11.0)
[2018-06-16 03:20] LABS: PHOSPHORUS* 5.1 mg/dL (2.5-4.9); POTASSIUM 3.2 mmol/L (3.5-5.1)
[2018-06-16 04:00] VITALS: BP 140/84
--- NOTE | 2018-06-16 06:00 | NUR ---
ALERT AND ORIENTED X4. NAUSEA MEDICATION GIVEN X1 AND HELPFUL. PAIN MEDICATION GIVEN X1 FOR C/O HEADACHE HELPFUL. REMAINS ON O2 AT 2L/NC TO KEEP O2 SAT IN 90'S. HAS PATENT IV PICC LINE IN RIGHT UPPER EXTREMITY. TEMPORARY DIALYSIS TUBES REMAIN IN PLACE RIGHT JUGULAR. CALL LIGHT WITHIN REACH.
[2018-06-16 08:47] VITALS: BP 130/76
[2018-06-16 16:45] VITALS: BP 144/91
[2018-06-16 21:00] VITALS: BP 144/95
[2018-06-17 04:21] LABS: CALCIUM 8.4 mg/dL (8.5-10.1); CREATININE 4.2 mg/dL (0.6-1.3); MAGNESIUM 1.7 mg/dL (1.8-2.4); POTASSIUM 3.4 mmol/L (3.5-5.1)
--- NOTE | 2018-06-17 05:43 | NUR ---
UP WITH STAND BY ASSIST AMBULATING IN HALLWAY. USING IV ZOFRAN TO HELP WITH NAUSEA. BILATERAL FEET HAS 3+ PITTING EDEMA AND ELEVATED ON PILLOW. PICC LINE PATENT TO RIGHT UPPER EXTREMITY. O2 AT 2L/NC TO KEEP O2 SAT AT 97%. CALL LIGHT WITHIN REACH. PAYNE CATHETER PATENT WITH CLEAR YELLOW URINE.
[2018-06-17 08:44] VITALS: BP 138/83
[2018-06-17] MEDS ORDERED: ZOLOFT100 MG PO (10:28)
[2018-06-17] MEDS ORDERED: PHENERGAN 25 MG25 M1 PO (10:28)
[2018-06-17] MEDS ORDERED: VITAMIN B-1100 M1 PO (10:28)
--- NOTE | 2018-06-17 16:05 | NUR ---
SW met with pt to follow up on dc planning. Pt says she thinks she will be able to dc home tomorrow. Pt plans to dc home alone and says that her sister has helped make certain that the whiskey bottle is thrown out and that the house is clean and not smelling like alcohol. SW mentioned the inpt and outpt alcohol rehab options and pt said that she has been to 2 inpt rehabs and 4 or 5 OP rehabs in the past and she says she has the tools she needs. Pt said she will continue to follow up with AA for support. Pt said she plans to find out if she can have her job back since she was in the hospital for over a week when she found out that she was terminated from her job for not returning something that the employer needed signed in the timeframe that they needed it. Pt said then she plans to file for unemployment if she is unable to get her job back as well as look for other jobs in the meantime. Pt said her insurance will end on June 19 and she would plan to find out if she could afford some type of insurance. Pt did not express any other needs at this time but expressed that she was "scared enough" and teary eyed about this hospitalization that she does want to change for the better. SW to remain available to assist with safe dc planning.
--- NOTE | 2018-06-17 19:01 | NUR ---
VSS, NO DISTRESS, UP TO CHAIR MOST OF THE DAY, REJ TEMPORARY VASCATH REMOVED, SITE DRESSSED, OCCLUSIVE. ANTICIPATE DISCHARGE IN AM. CONT POC.
[2018-06-17 20:35] VITALS: BP 139/82
[2018-06-18 04:45] LABS: HEMATOCRIT 24.1 % (37.0-47.0); HEMOGLOBIN 8.1 gm/dL (12.0-15.0); MCH 30.9 pg (26.0-34.0); MCHC 33.8 g/dL (28.0-37.0); MCV 91.4 fL (80.0-100.0); MPV 8.2 fl. (7.2-11.1); RBC 2.64 mil/uL (4.20-5.00); RDW-CV 17.9 % (10.5-14.5); WBC 6.8 thou/uL (4.0-11.0)
--- NOTE | 2018-06-18 05:15 | NUR ---
PT SLEPT MOST OF SHIFT. ASSESSMENT DOCUMENTED. MEDS GIVEN PER E-OCT. PICC SLUGGISH THIS SHIFT. NO REPORTS OF PAIN. NAUSEA MEDS GIVEN ONCE THIS SHIFT. WILL CONTINUE WITH PLAN OF CARE.
[2018-06-18 05:46] LABS: CALCIUM 8.7 mg/dL (8.5-10.1); MAGNESIUM 1.6 mg/dL (1.8-2.4); POTASSIUM 3.6 mmol/L (3.5-5.1)
[2018-06-18 05:47] LABS: CREATININE 3.1 mg/dL (0.6-1.3)
[2018-06-18 08:00] VITALS: BP 138/89
[2018-06-18 08:14] VITALS: BP 138/89
[2018-06-18 12:34] VITALS: BP 138/89
[2018-06-18 13:42] VITALS: BP 138/89
--- NOTE | 2018-06-18 13:43 | NUR ---
PATIENT HAS BEEN ALERT AND ORIENTED TODAY, PLEASANT. VITAL SIGNS STABLE ON ROOM AIR. SOME COMPLAINTS OF HEADACHE THAT WAS SOMEWHAT CONTROLLED WITH ORAL PAIN MEDICATIONS, ALWAYS STATES IN PAIN. PAYNE AND PICC REMOVED TODAY PRIOR TO DISCHARGE. PATIENT HAS BEEN DISCHARGED TO HOME, DISCHARGE INSTRUCTIONS AND PRESCRIPTIONS GIVEN. QUESTIONS ANSWERED FOR PATIENT. LEFT VIA WHHELCHAIR TO HOME WITH MOM.
--- NOTE | 2018-06-26 12:52 | CON ---
[address] [address] CONSULTATION Name: NORMAN FARAHE JONATHAN Room: [address] IN .R.#: [id number] Admission: 06/04/18 Attend Phys: Bassem Richardson MD Discharge: 06/18/18 Date of : 62 Report #: [id number] THIS REPORT FOR: //name// CC: Bassem Mejia HISTORY OF PRESENT ILLNESS: This is a 58-year-old female with history of alcohol abuse, is well known to our service. The patient was seen 3 times over the last 6 weeks, each time presenting with an episode of alcohol binge and alcoholic gastritis. The patient was seen previously 2 weeks back at [facility] when she presented with acute alcohol intoxication, nausea, vomiting and coffee-ground emesis. An EGD performed at that time showed LA grade D esophagitis. The patient reports heavy alcohol use for the last 20 years. She reports she takes bourbon every day and drinks about three-fifths of bourbon. The patient is somnolent, but answers most questions. The patient does not have a known history of cirrhosis and denies prior episodes of confusion, abdominal distention, or jaundice. This admission, the patient has presented with nausea, vomiting and coffee-ground emesis. She reports not eating for a week and consuming only alcohol. PAST MEDICAL HISTORY: Significant for alcohol abuse, hyperlipidemia, osteoporosis, depression and anxiety. PAST SURGICAL HISTORY: None. FAMILY HISTORY: There is no family history of colon cancer. SOCIAL HISTORY: The patient denies smoking or recreational drug use. Her alcohol history is outlined in the HPI. REVIEW OF SYSTEMS: Negative except for what was mentioned in the HPI. PHYSICAL EXAMINATION: VITAL SIGNS: Temperature 36.6, pulse rate 125, respirations 22, blood pressure ____ oriented. HEENT: Pupils are equal, round, reactive to light and accommodation. There is no scleral icterus. Mucous membranes are moist. Severe ketotic breath is noted when the patient speaks. NECK: Supple. There is no supraclavicular lymphadenopathy. CARDIOVASCULAR: Rate rhythm regular, S1, S2 present. LUNGS: Clear to auscultation bilaterally. ABDOMEN: Soft. There is no distention, no guarding, no tenderness, no splenomegaly. EXTREMITIES: Warm, well perfused. There is no edema. SKIN: [place] [address] CONSULTATION Name: NANY FARAH Room: [address]#: [id number] Admission: 06/04/18 Attend Phys: Bassem Richardson MD Discharge: 06/18/18 Date of : 62 Report #: [id number] NEUROLOGIC: There are no focal neurological deficits and there is no asterixis. LABORATORY DATA: WBC count 19, hemoglobin 12.5, hematocrit 42.1, platelet count 438. Sodium 152, potassium 4.8, chloride 104, bicarbonate less than 5, BUN 15, creatinine 2.5, lactic acid 20.9, AST 435, ALT 179, alkaline phosphatase 142. Serum alcohol level 116. CT abdomen and pelvis shows moderate size hiatal hernia, there is hepatic steatosis. ASSESSMENT AND PLAN: This is a 58-year-old female with history of alcohol abuse and recurrent hospitalizations for the same who is presenting with ____ nausea, vomiting and coffee-ground emesis. The patient underwent an esophagogastroduodenoscopy during her last admission at [facility], was found to have [place] grade D esophagitis. The patient is not eating anything for the last week and has only been consuming alcohol. 1. Acute alcohol intoxication. I would monitor the patient for alcohol withdrawal. She is on a CIWA protocol at this time. 2. Severe lactic acidosis. This is probably contributing by both the alcohol intake and lack of p.o. intake in addition to dehydration. Continue IV fluids for now. Monitor lactic acid levels. We will get blood and urine cultures and start the patient on broad-spectrum antibiotics. 3. Elevated transaminases. This is again attributable to acute alcohol consumption. I would monitor the liver enzymes to ensure that they are trending down. 4. Coffee-ground emesis. As mentioned above, the patient had [place] grade D esophagitis ____ clear liquid diet. There is no role for endoscopy at this time. Thirty minutes were spent with the patient reviewing chart and previous medical records, obtaining history, performing physical examination and formulating a plan of care. <ELECTRONICALLY SIGNED> By: Roque Muhammad MD 06/26/18 1252 2226 [id number] Muhammad MD /nt
== END 2018-06-18 13:47 | disposition home or self-care (01) | DRG 432 ==
LOC: M.ERS 08:30 → M.TBA-ER 11:04 → M.ICU 11:04 → M.3W 06-14 09:42
PROVIDERS: Family Medicine; Internal Medicine; Internal Medicine Nephrology; Personal Emergency Response Attendant; ADMIT Internal Medicine
PROC: 02HV33Z Insertion of Infusion Device into Superior Vena Cava, Percutaneous Approach (ICD-10-PCS; principal; 2018-06-04)
PROC: B548ZZA Ultrasonography of Superior Vena Cava, Guidance (ICD-10-PCS; 2018-06-04)
PROC: 5A1D70Z Performance of Urinary Filtration, Intermittent, Less than 6 Hours Per Day (ICD-10-PCS; 2018-06-04)
DX: K70.10 Alcoholic hepatitis without ascites (principal); N17.0 Acute kidney failure with tubular necrosis; R65.11 Systemic inflammatory response syndrome (SIRS) of non-infectious origin with acute organ dysfunction; K85.20 Alcohol induced acute pancreatitis without necrosis or infection; K29.71 Gastritis, unspecified, with bleeding; E43 Unspecified severe protein-calorie malnutrition; E87.2 Acidosis; N39.0 Urinary tract infection, site not specified; E87.1 Hypo-osmolality and hyponatremia; F10.231 Alcohol dependence with withdrawal delirium; F10.221 Alcohol dependence with intoxication delirium; J98.11 Atelectasis; Z28.21 Immunization not carried out because of patient refusal; E78.5 Hyperlipidemia, unspecified; M81.0 Age-related osteoporosis without current pathological fracture; K21.9 Gastro-esophageal reflux disease without esophagitis; F32.9 Major depressive disorder, single episode, unspecified; F41.9 Anxiety disorder, unspecified; K74.60 Unspecified cirrhosis of liver; E86.0 Dehydration; R74.0 Nonspecific elevation of levels of transaminase and lactic acid dehydrogenase [LDH]; E83.39 Other disorders of phosphorus metabolism; R73.9 Hyperglycemia, unspecified; E87.6 Hypokalemia; Y90.9 Presence of alcohol in blood, level not specified; K20.9 Esophagitis, unspecified; N18.3 Chronic kidney disease, stage 3 (moderate); D69.59 Other secondary thrombocytopenia; B95.2 Enterococcus as the cause of diseases classified elsewhere; K44.9 Diaphragmatic hernia without obstruction or gangrene; K76.0 Fatty (change of) liver, not elsewhere classified; Z23 Encounter for immunization; Z79.899 Other long term (current) drug therapy; Z68.30 Body mass index [BMI] 30.0-30.9, adult

== ENCOUNTER 2018-07-14 18:44 | Inpatient (IN) | payer OTHER ==
[~2018-07-14] VITALS: Ht 167.6 cm; Wt 75.3 kg
--- NOTE | ~2018-07-14 | CON ---
[facility] [address] [place] [address] CONSULTATION Name: NANY FARAH Room: [address] IN [employer].#: [id number] Admission: 07/14/18 Attend Phys: Elsa Chacon MD Discharge: Date of : 62 Report #: [id number] THIS REPORT FOR: //name// CC: Sonu Chacon DATE OF SERVICE: 07/15/2018 REQUESTING PHYSICIAN: Elsa Cason M.D. REASON FOR CONSULTATION: Metabolic acidosis. HISTORY OF PRESENT ILLNESS: The patient is a 58-year-old female with a medical history significant for alcoholism and chronic kidney disease. She unfortunately continues to drink and she drinks whiskey every day. She also admits that she has very poor nutrition, it is almost nothing. The patient presents with complaints of vomiting. She had some blood in her emesis. She has history of esophageal ulceration. So when she was admitted, the lab report revealed that she had metabolic acidosis. Initial pH was 6.939 with her anion gap of 42 and her carbon dioxide is less than 5. Her alcohol level was 101. This morning after we give her bicarbonate drip, her carbon dioxide came up to 27. Creatinine is 2.4, this is her baseline. Her hemoglobin is 8.7. Urinalysis is positive for ketones. MEDICATIONS: Prior to admission reviewed. SOCIAL HISTORY: Positive for alcoholism. FAMILY HISTORY: Negative for renal disease. REVIEW OF SYSTEMS: Positive for symptoms as I mentioned earlier; otherwise, all systems are reviewed and are negative. PHYSICAL EXAMINATION: GENERAL: The patient is awake, alert, and oriented. VITAL SIGNS: Blood pressure is 106/52, heart rate is 120, and respiratory rate is 30 Afebrile. HEENT: Pupils are round. NECK: Supple. LUNGS: Decreased air movement. CARDIOVASCULAR: Regular rate. Tachycardia. ABDOMEN: [place] [address] CONSULTATION Name: NANY FARAH Room: [address] IN [facility]#: [id number] Admission: 07/14/18 Attend Phys: Elsa Chacon MD Discharge: Date of : 62 Report #: [id number] LABORATORY REPORT: As I mentioned earlier. ASSESSMENT: 1. Metabolic acidosis due to alcoholism, alcohol intoxication, and starvation. She also has starvation acidosis. 2. Chronic kidney disease, stage 3. 3. Alcoholism. PLAN: She received bicarbonate drip. Her bicarbonate is back to normal. Her main problem is alcoholism and unfortunately unless that problem is addressed, she will have the same problem in the near future. At this point, there is nothing I can add to her management. I will stop bicarbonate drip. Continue banana bag and I will be available if there are any questions. I will sign off. By: [id number] MACIEL Ly
--- NOTE | ~2018-07-14 | PROC ---
[address] [address] PROCEDURE REPORT Name: NANY FARAH Room: [address] IN ..#: [id number] Admission: 07/14/18 Attend Phys: Elsa Chacon MD Discharge: 07/18/18 Date of : 62 Report #: [id number] THIS REPORT FOR: //name// For GI report, please see the Provation report in Perceptive 7 content. By: 1402Medical Records Staff DEWAYNE /RENATE
--- NOTE | ~2018-07-14 | CON ---
[address] [address] CONSULTATION Name: NANY FARAH Room: [address] IN M.R.#: [id number] Admission: 07/14/18 Attend Phys: Elsa Chacon MD Discharge: Date of : 62 Report #: [id number] THIS REPORT FOR: //name// CC: Sonu Chacon HISTORY OF PRESENT ILLNESS: This is a 58-year-old female with history of alcohol abuse who is very well known to our service, presenting with another episode of abdominal pain, nausea, vomiting after an alcohol binge. The patient has been seen approximately 4-5 times in the last couple of months. Her usual presentation is when she goes on an alcohol binge and ends up with several episodes of nausea and vomiting. She has a prior history of LA grade D esophagitis and coffee-ground emesis. She was recently scoped at [facility]. Currently, she denies any further nausea or vomiting. She also denies any abdominal pain, fevers, chills or weight loss. The patient does have a baseline history of depression and reports that she has been taking her medications regularly. PAST MEDICAL HISTORY: History of depression, alcohol abuse, hypertension, hyperlipidemia. PAST SURGICAL HISTORY: Nonsignificant. SOCIAL HISTORY: She drinks about a fifth of hard liquor, whiskey or bourbon daily. Denies smoking or recreational drug use. FAMILY HISTORY: There is no family history of alcohol abuse or colorectal cancer. REVIEW OF SYSTEMS: A comprehensive 10-point review of systems is negative except for what is mentioned here. PHYSICAL EXAMINATION: VITAL SIGNS: Blood pressure 121/78, pulse rate 118, pulse ox 97%, respirations 22. GENERAL: She is alert, awake, oriented x 3. HEENT: Pupils are equal, round, reactive to light and accommodation. Mucous membranes are moist. There is no congestion. LUNGS: Clear to auscultation bilaterally. CARDIOVASCULAR: Rate and rhythm regular, S1, S2 present. ABDOMEN: Soft, it is mildly distended. No guarding or rigidity. EXTREMITIES: Warm, well perfused. There is no edema. LABORATORY DATA: Hemoglobin 8.7, hematocrit 25.5, WBC count 7.6, platelet count 156. Sodium 149, potassium 3.2, chloride 109, BUN 32, creatinine 1.9. INR 0.9. [place] [address] CONSULTATION Name: NANY FARAH Room: [address] IN [facility]#: [id number] Admission: 07/14/18 Attend Phys: Elsa Chacon MD Discharge: Date of : 62 Report #: [id number] abdomen and pelvis demonstrates circumferential mural thickening of the transverse colon without surrounding inflammation, surrounding nonspecific colitis, likely infectious or inflammatory. No pneumatosis or portal venous gas. Does have history of prior colitis. ASSESSMENT AND PLAN: This is a very pleasant 58-year-old female who is known to our service through her multiple admissions for alcohol abuse and intoxication. GI Service has been consulted for coffee-ground emesis as well as thickening of the colon noted on CT scan. The patient recently had an EGD which demonstrated LA grade D esophagitis and I suspect this will continue to be her diagnosis. I would place the patient on b.i.d. PPI and Carafate 1 gram 4 times a day. The patient never had a colonoscopy, therefore it is reasonable to perform a colonoscopy to evaluate her colon a little better. This will be done when she is more stable and out of the ICU. We can plan for colonoscopy tentatively on Sunday. Please call GI with any questions. By: [id number] Muhammad MD /nt
[2018-07-14 18:45] VITALS: BP 112/63
[2018-07-14 20:32] LABS: HEMATOCRIT 38.1 % (37.0-47.0); HEMOGLOBIN 11.4 gm/dL (12.0-15.0); MCH 29.9 pg (26.0-34.0); MCHC 29.9 g/dL (28.0-37.0); MPV 7.9 fl. (7.2-11.1); NUCLEATED RBCS 0 /100WBC; PLATELET COUNT* 305 thou/uL (150-400); RBC 3.81 mil/uL (4.20-5.00); RDW-CV 17.7 % (10.5-14.5)
[2018-07-14 20:39] LABS: APTT 25.2 Seconds (25.0-31.3); INR 0.9; PROTIME 9.4 Seconds (9.20-11.50)
[2018-07-14 20:50] LABS: ANION GAP 42 mmol/L (7-16); BUN 26 mg/dL (7-18); CALCIUM 9.4 mg/dL (8.5-10.1); CHLORIDE 98 mmol/L (98-107); CO2 < 5 mmol/L (21-32); CREATININE 2.6 mg/dL (0.6-1.3); GLUCOSE 85 mg/dL (70-99); POTASSIUM 4.9 mmol/L (3.5-5.1); SODIUM 145 mmol/L (136-145)
[2018-07-14 20:55] LABS: ALKALINE PHOSPHATASE 100 U/L (46-116); LIPASE 119 U/L (73-393); SGOT 59 U/L (15-37); SGPT 41 U/L (30-65); TOTAL BILIRUBIN 0.3 mg/dL (<0.1-1.0); TOTAL PROTEIN 8.4 g/dL (6.4-8.2)
[2018-07-14 21:16] LABS: ABSOLUTE EOSINOPHILS 0.2 thou/uL (0.0-0.7); ABSOLUTE LYMPHOCYTES 3.6 thou/uL (0.8-5.3); ABSOLUTE MONOCYTES 1.7 thou/uL (0.0-1.2); ABSOLUTE NEUTROPHILS 13.5 thou/uL (1.6-8.1)
[2018-07-14 21:17] LABS: ANISOCYTOSIS 1+; PLATELET ESTIMATE ADEQUATE; POLYCHROMASIA Occasional
[2018-07-14 21:20] LABS: URINE BILIRUBIN NEGATIVE (Negative); URINE BLOOD TRACE (Negative); URINE CLARITY CLEAR; URINE COLOR YELLOW; URINE GLUCOSE-RANDOM NEGATIVE (Negative); URINE KETONES 1+ (Negative); URINE LEUKOCYTES-REFLEX NEGATIVE (Negative); URINE NITRITE-REFLEX NEGATIVE (Negative); URINE PROTEIN 2+ (Negative); URINE SPECIFIC GRAVITY >= 1.030 (1.005-1.030); URINE UROBILINOGEN 0.2 E.U./dl (0.2-1.0)
[2018-07-14 21:27] LABS: SQUAMOUS 0-3 Few /LPF (0-3)
[2018-07-14 21:28] LABS: AMORPHOUS URATES Few /LPF (None Seen); BACTERIA-REFLEX None Seen /HPF (None Seen); CASTS None Seen /LPF (None Seen); MUCUS 0-3 Light strn/LPF (None Seen); URINE RBC None Seen /HPF (0-2); URINE WBC-REFLEX None Seen /HPF (0-5)
[2018-07-14 22:20] VITALS: BP 106/52
[2018-07-14 22:43] LABS: BE -27.8 mmol/L (-2 to +3)
[2018-07-14 22:46] LABS: pH 6.939 (7.340-7.450)
[2018-07-14 22:47] LABS: HCO3 2.8 mmol/L (22.0-26.0); PCO2 < 17.0 mmHg (35.0-45.0); PO2 138.1 mmHg (75.0-100.0)
[2018-07-14 23:24] LABS: CALCIUM 7.7 mg/dL (8.5-10.1); PHOSPHORUS* 8.9 mg/dL (2.5-4.9)
[2018-07-15] VITALS (13 sets, daily range): BP systolic 108–139; BP diastolic 67–86
[2018-07-15 05:08] LABS: CALCIUM 7.4 mg/dL (8.5-10.1); CREATININE 2.6 mg/dL (0.6-1.3); MAGNESIUM 1.5 mg/dL (1.8-2.4); POTASSIUM 5.1 mmol/L (3.5-5.1); TOTAL BILIRUBIN 0.5 mg/dL (<0.1-1.0); TOTAL PROTEIN 6.2 g/dL (6.4-8.2)
[2018-07-15 05:19] LABS: HEMATOCRIT 26.8 % (37.0-47.0); HEMOGLOBIN 8.8 gm/dL (12.0-15.0); MCH 30.8 pg (26.0-34.0); MCHC 32.9 g/dL (28.0-37.0); MCV 93.5 fL (80.0-100.0); MPV 7.9 fl. (7.2-11.1); RBC 2.87 mil/uL (4.20-5.00); RDW-CV 16.4 % (10.5-14.5)
--- NOTE | 2018-07-15 07:28 | NUR ---
ADMITTED TO ICU BED 3 AT 2200, SEE ASSESSMENT. LEVOPHED GTT NOT NEEDED AT BP IMPROVED AND MAP REMAINED >65. ALL CRITICAL LABS COMMUNICATED TO DR ROGERS AND DR HALE. BICARB CONTAINING IVF AND BANANA BAG RUNNING CONCURRENTLY PER DR HALE. NO EMESIS OR STOOLS THIS SHIFT. HIGHEST CIWA SCORE 6. ATIVAN TAPER GIVEN ORDERED.
[2018-07-15 09:56] LABS: ABSOLUTE BASOPHILS 0.1 thou/uL (0.0-0.2); ABSOLUTE LYMPHOCYTES 0.8 thou/uL (0.8-5.3); ABSOLUTE MONOCYTES 0.8 thou/uL (0.0-1.2); ABSOLUTE NEUTROPHILS 5.9 thou/uL (1.6-8.1); BASOPHILS 0.9 %; HEMATOCRIT 25.5 % (37.0-47.0); HEMOGLOBIN 8.7 gm/dL (12.0-15.0); LYMPHOCYTES 11.1 %; MCH 31.2 pg (26.0-34.0); MCHC 34.2 g/dL (28.0-37.0); MCV 91.3 fL (80.0-100.0); MONOCYTES 10.5 %; MPV 7.6 fl. (7.2-11.1); NUCLEATED RBCS 0 /100WBC; PLATELET COUNT* 156 thou/uL (150-400); POLYS 77.5 %; RBC 2.79 mil/uL (4.20-5.00); RDW-CV 16.2 % (10.5-14.5); WBC 7.6 thou/uL (4.0-11.0)
[2018-07-15 10:01] LABS: CALCIUM 7.4 mg/dL (8.5-10.1); CREATININE 2.4 mg/dL (0.6-1.3)
[2018-07-15 10:16] LABS: ALBUMIN 3.1 g/dL (3.4-5.0); CK-MB MASS 5.9 ng/mL (<0.5-3.6); PHOSPHORUS* 2.4 mg/dL (2.5-4.9); TOTAL BILIRUBIN 0.5 mg/dL (<0.1-1.0); TOTAL PROTEIN 6.1 g/dL (6.4-8.2); TROPONIN-I LEVEL 0.11 ng/mL (<0.06)
--- NOTE | 2018-07-15 10:40 | NUR ---
PT KNOWN TO CASE MGT FROM PREVIOUS ADMISSIONS FOR ALCOHOL WITHDRAWL/DETOX. PT SLEEPING SOUNDLY, UNABLE TO WAKE HER UP. WILL ASSESS AT LATER TIME.
[2018-07-15 13:20] LABS: CALCIUM 7.6 mg/dL (8.5-10.1); CREATININE 2.2 mg/dL (0.6-1.3); POTASSIUM 3.6 mmol/L (3.5-5.1)
[2018-07-15 13:23] LABS: MAGNESIUM 1.4 mg/dL (1.8-2.4)
[2018-07-15 17:33] LABS: CALCIUM 7.8 mg/dL (8.5-10.1); CREATININE 1.9 mg/dL (0.6-1.3); POTASSIUM 3.2 mmol/L (3.5-5.1)
[2018-07-15 17:36] LABS: MAGNESIUM 2.3 mg/dL (1.8-2.4); PHOSPHORUS* 1.4 mg/dL (2.5-4.9)
[2018-07-15 21:26] LABS: URINE BILIRUBIN NEGATIVE (Negative); URINE BLOOD TRACE (Negative); URINE CLARITY CLEAR; URINE COLOR YELLOW; URINE GLUCOSE-RANDOM NEGATIVE (Negative); URINE KETONES TRACE (Negative); URINE LEUKOCYTES-REFLEX NEGATIVE (Negative); URINE NITRITE-REFLEX NEGATIVE (Negative); URINE PROTEIN NEGATIVE (Negative); URINE UROBILINOGEN 0.2 E.U./dl (0.2-1.0)
[2018-07-15 21:34] LABS: AMP/METHAMP Negative (Negative); BARBITURATES Negative (Negative); BENZODIAZEPINES Negative (Negative); CALCIUM 7.6 mg/dL (8.5-10.1); COCAINE Negative (Negative); CREATININE 1.8 mg/dL (0.6-1.3); METHADONE Negative (Negative); OPIATES Negative (Negative); PCP Negative (Negative); POTASSIUM 3.3 mmol/L (3.5-5.1); THC Negative (Negative)
[2018-07-15 21:37] LABS: MAGNESIUM 2.2 mg/dL (1.8-2.4); PHOSPHORUS* 2.1 mg/dL (2.5-4.9)
[2018-07-16] VITALS (18 sets, daily range): BP systolic 104–132; BP diastolic 64–98
--- NOTE | 2018-07-16 05:14 | NUR ---
Pt tolerating clear liquid diet well. assessment as charted. sinus rhythm and sinus tach on the monitor. pt is being repleted with IV potassium per protocol. pt is drowsy but able to follow commands. plans are to have EGD/Colonoscopy per GI in two days. pt self turned/repositioned for comfort. all needs addressed. continue with plan of care.
[2018-07-16 05:25] LABS: CALCIUM 7.8 mg/dL (8.5-10.1); CREATININE 1.5 mg/dL (0.6-1.3); POTASSIUM 3.5 mmol/L (3.5-5.1)
--- NOTE | 2018-07-16 13:52 | NUR ---
PT TRANSFERED TO UNIT AROUND 1100 PT IS ALERT AND ORIENTED X 4 PT SLEEPING WILL WAKE UP TO TAKE MEDICATIONS FOLLOWS COMMANDS, PT IS UP WITH SBA PT IS A FALL RISK BED ALARM IS ON, PT IS ON ATIVAN TAPER, PT IS SR ON THE MONITOR, PT IS ON RA, PT DENIES PAIN GI SAW PT WILL SCHEDULE COLONOSCOPY FOR TOMORROW JULY 17 PT NPO AT MIDNIGHT, PT DIET BACK TO CLEAR LIQUID, PHYSICIAN ORDERED FLUIDS FOR THIS EVENING, WILL CONTINUE TO MONITOR
--- NOTE | 2018-07-16 15:31 | EKG ---
[place] [address] ELECTROCARDIOGRAM REPORT Name: SOFINANY MARIE Room: [address] ADM IN M.R.#: [id number] Admission: 07/14/18 Attend Phys: Elsa Chacon MD Discharge: Date of : 62 Report #: [id number] THIS REPORT FOR: //name// [facility] Test Date: 2018-07-16 Test Time: 11:25:30 Pat Name: NANY FARAH Department: Room: [facility] Gender: F Bioinformatics Developer: : 1960 Requested By: Jonah Lyles Order Number: [id number] Sabina MD: Carl oHrner Measurements Intervals Agency Rate: 97 P: 39 VT: 141 QRS: 10 QRSD: 79 T: 51 QT: 380 QTc: 483 Interpretive Statements Sinus rhythm Low voltage, extremity leads Compared to ECG 06/04/2018 09:42:10 Sinus tachycardia no longer present Left-axis deviation no longer present Prolonged QT interval no longer present Electronically Signed On 07-16-2018 15:30:[address] VENDOR by Carl Horner [email or web address] <ELECTRONICALLY SIGNED> By: Carl Horner MD, FACC 07/16/18 1530 1125 1125 Carl Horner MD, FAC /EPI
[2018-07-17 05:08] LABS: ABSOLUTE EOSINOPHILS 0.1 thou/uL (0.0-0.7); ABSOLUTE LYMPHOCYTES 1.7 thou/uL (0.8-5.3); ABSOLUTE MONOCYTES 0.3 thou/uL (0.0-1.2); ABSOLUTE NEUTROPHILS 2.4 thou/uL (1.6-8.1); BASOPHILS 0.6 %; EOSINOPHILS 3.2 %; HEMATOCRIT 24.7 % (37.0-47.0); HEMOGLOBIN 8.2 gm/dL (12.0-15.0); LYMPHOCYTES 37.4 %; MCH 30.7 pg (26.0-34.0); MCV 93.1 fL (80.0-100.0); MONOCYTES 5.9 %; MPV 7.6 fl. (7.2-11.1); NUCLEATED RBCS 0 /100WBC; PLATELET COUNT* 117 thou/uL (150-400); POLYS 52.9 %; RBC 2.65 mil/uL (4.20-5.00); RDW-CV 16.5 % (10.5-14.5); WBC 4.5 thou/uL (4.0-11.0)
--- NOTE | 2018-07-17 05:14 | NUR ---
PT CARE ASSUMED AT 1930. SAT MAINTAINED IN RA. ALERT AND ORIENTED X4, FORGETFUL AND CONFUSED. CALL LIGHT WITHIN REACH AND BED IN LOW POSITION. DENIES ANY SOB. PT C/O HEADACHE, MEDICATION GIVEN PER EMAR. PT IS DROWSY. NPO FOR COLONOSCOPY. PHYSICIAN ORDERED FLUID FOR BOWEL PREP DRANK 1/4, REFUSES TO DRINK ALL. STOOL WATERY AND GREENISH IN COLOR. HOURLY ROUNDING DONE FOR PT SAFETY.
[2018-07-17 05:27] LABS: ALBUMIN 2.7 g/dL (3.4-5.0); ALKALINE PHOSPHATASE 67 U/L (46-116); ANION GAP 7 mmol/L (7-16); BUN 10 mg/dL (7-18); CALCIUM 8.3 mg/dL (8.5-10.1); CHLORIDE 110 mmol/L (98-107); CO2 29 mmol/L (21-32); GLUCOSE 115 mg/dL (70-99); MAGNESIUM 1.6 mg/dL (1.8-2.4); PHOSPHORUS* 1.7 mg/dL (2.5-4.9); POTASSIUM 3.2 mmol/L (3.5-5.1); SGOT 37 U/L (15-37); SGPT 29 U/L (30-65); SODIUM 146 mmol/L (136-145); TOTAL BILIRUBIN 0.8 mg/dL (<0.1-1.0); TOTAL PROTEIN 5.6 g/dL (6.4-8.2)
[2018-07-17 08:00] VITALS: BP 131/94
[2018-07-17 08:51] VITALS: BP 131/94
[2018-07-17 09:35] VITALS: BP 131/94
[2018-07-17 11:18] VITALS: BP 132/82
[2018-07-17 16:04] VITALS: BP 144/96
[2018-07-17 20:00] VITALS: BP 151/94
[2018-07-17] MEDS ORDERED: TRAZODONE HCL100 MG PO (20:04)
[2018-07-18] VITALS: BP 139/93
[2018-07-18 04:00] VITALS: BP 119/85
[2018-07-18 04:57] LABS: CALCIUM 9.6 mg/dL (8.5-10.1); CREATININE 0.9 mg/dL (0.6-1.3); MAGNESIUM 1.8 mg/dL (1.8-2.4); PHOSPHORUS* 2.3 mg/dL (2.5-4.9)
--- NOTE | 2018-07-18 05:34 | NUR ---
ASSUMED CARE OF PT AFTER REPORT AT 1930. PT A&OX4. VSS. PHYSICAL ASSESSMENT COMPLETED AND CHARTED. PT ON RA WITH 95% O2 SAT. PT TRACING SR/ST ON TELE. PT COMPLAINED OF HEADACHE-PAIN MEDS GIVEN PER MAR WITH PARTIAL RELIEF. HOURLY ROUNDING OBSERVED. CALL LIGHT WITHIN REACH. BED IN LOW POSITION.
[2018-07-18 07:54] VITALS: BP 139/88
--- NOTE | 2018-07-18 09:12 | NUR ---
ASSUMED CARE OF PT THIS AM AROUND 0715- HOSPICE PATIENT CARE SECRETARY IN PLACE ORDERED, TRACING SR- UPON ASSESSMENT PT NOTED TO BE RESTING IN BED, WATCHING TV- PT A&O X4- CONTINENT OF BOWEL AND BLADDER- SBA WITH TRANSFERS FOR SAFETY- LCTA, RESP EVEN AND UN-LABORED- VSS, O2 SAT 965 ON RA- ABDOMEN SOFT/ROUND/NON-TENDER, BS X4 QUADS- LAST BM REPORTED 07/17/18- RIGHT IJ TRIPLE LUMEN PICC NOTED INTACT, DRESSING INTACT, NO S/S INFECTION NOTED- IVF INFUSSING PRESCIBED THIS AM- CIWA IN PLACE INDICATED, NOTED TO BE A O THIS AM- GOOD PO INTAKE NOTED THIS DAILY WITH BREAKFAST, BS MONITORED ORDERED, SSI INDICATED- K+ NOTED AT 3.0 THIS AM AND IS CURRENLTY BEING REPLACED PER PROTOCOL- PT DENIES ANY C/O PAIN/DISCOMFORT AT THIS TIME- CALL LIGHT AND PERSONAL BELONGINGS WITH IN REACH- ALL NEEDS MET AT THIS TIME-WCTM
[2018-07-18 11:37] VITALS: BP 127/90
[2018-07-18] MEDS ORDERED: METFORMIN HCL500 MG PO (11:56)
[2018-07-18 12:24] VITALS: BP 127/90
--- NOTE | 2018-07-18 13:40 | NUR ---
ORDERS RECIEVIED PER FOR [facility] TO D/C HOME THIS SHIFT POST LUNCH- PT NOTED TO HAVE GOOD PO INTAKE WITH LUNCH- PICC TO RIGHT IJ REMOVED WITH PRESSURE DRESSING APPLIED PRIOR TO D/C- PICC NOTED WITH END INTACT- HYDROTECHNICAL SPECIALIST D/C'D- D/C TEACHING/EDUCATION GIVEN TO PT WITH ALL QUESTIONS AND CONCERNS ADDRESED PRIOR TO D/C- WRITTEN EDUCATION ALONG WITH SCRIPTS PROVIDED TO PT AT TIME OF D/C- BELONGINGS PACKED AND ACCOUNTED FOR PER PT- PT ESCORTED PER TECH VIA W/C TO FRIEND VEHICLE WITH BELONGINGS AT 1320- NO PROBLEMS TO NOTE AT TIME OF D/C
--- NOTE | 2018-07-18 17:44 | EKG ---
[place] [address] ELECTROCARDIOGRAM REPORT Name: DARIENNANY LAZAR JONATHAN Room: [address] DIS IN M.R.#: [id number] Admission: 07/14/18 Attend Phys: Elsa Chacon MD Discharge: 07/18/18 Date of : 62 Report #: [id number] THIS REPORT FOR: //name// [facility] Test Date: 2018-07-17 Test Time: 13:27:22 Pat Name: NANY FARAH Department: Room: [facility] Gender: F Surgical Technology Instructor: : 1960 Requested By: Jonah Lyles Order Number: [id number] Sabina MD: Carl Horner Measurements Intervals [place] Rate: 96 P: 44 RI: 136 QRS: -16 QRSD: 89 T: 48 QT: 375 QTc: 474 Interpretive Statements Sinus rhythm Borderline left axis deviation Low voltage, extremity leads Baseline wander in lead(s) II,aVR,aVF Compared to ECG 07/16/2018 11:25:30 No significant changes Electronically Signed On 07-18-2018 17:43:58 CRIMINALIST TECHNICIAN by Carl Horner [email or web address] <ELECTRONICALLY SIGNED> By: Carl Horner MD, FACC 07/18/18 1743 1327 1327 Carl Horner MD, FAC /EPI
--- NOTE | 2018-07-19 15:07 | PATH ---
[address] [address] PATHOLOGY RPT PROCEDURE Name: YUMIKO FARAH Room: [address] IN M.R.#: [id number] Admission: 07/14/18 Date of : 62 Discharge: 07/18/18 Report #: [id number] Path Case #: [id number] [facility] Accession Number: [id number] . 01 Material submitted: . ASCENDING COLON POLYP . 01 Clinical history: . None provided . 02 Diagnosis: Ascending colon polyp: - Benign colonic mucosa with prominent lymphoid aggregate (Peyer's patch) and suggestion of hyperplastic change, negative for dysplasia/adenomatous change. (TIMOTHY:pit 07/19/2018) QTP/07/19/2018 . 02 Electronically signed: . Pawan Tong MD, Pathologist NPI- [id number] . 01 Gross description: . Received in formalin labeled "Mary Farahe, ascending colon polyp," is a single segment of riggs soft tissue measuring 0.7 cm in maximum dimension. The specimen is entirely submitted in cassette A1. (TSD; 07/17/2018) TOB/TOB . 02 Pathologist provided ICD-10: K92.2 . 02 CPT . 674618 Specimen Comment: A courtesy copy of this report has been sent to Specimen Comment: [phone], , . Specimen Comment: Report sent to ,DR ROGERS / DR ARCE Specimen Comment: A duplicate report has been generated due to demographic updates. Performed at: [address], [place] [address] MD Robin Hunt MD Phone: [phone] Performed at: 02 [facility] [address], [place], [place] [address] MD Pawan Tong MD Phone: [phone]
== END 2018-07-18 13:20 | disposition home or self-care (01) | DRG 377 ==
LOC: M.ERS 18:44 → M.TBA-ER 20:55 → M.ICU 20:55 → M.2W 07-16 10:51
PROVIDERS: Emergency Medicine; Internal Medicine; Nurse Practitioner Family; ADMIT Internal Medicine
PROC: 02HV33Z Insertion of Infusion Device into Superior Vena Cava, Percutaneous Approach (ICD-10-PCS; 2018-07-14)
PROC: B548ZZA Ultrasonography of Superior Vena Cava, Guidance (ICD-10-PCS; 2018-07-14)
PROC: 0DBK8ZZ Excision of Ascending Colon, Via Natural or Artificial Opening Endoscopic (ICD-10-PCS; principal; 2018-07-17)
DX: K92.2 Gastrointestinal hemorrhage, unspecified (principal); E11.10 Type 2 diabetes mellitus with ketoacidosis without coma; E87.2 Acidosis; N17.9 Acute kidney failure, unspecified; E46 Unspecified protein-calorie malnutrition; E78.5 Hyperlipidemia, unspecified; M81.0 Age-related osteoporosis without current pathological fracture; I12.9 Hypertensive chronic kidney disease with stage 1 through stage 4 chronic kidney disease, or unspecified chronic kidney disease; K21.9 Gastro-esophageal reflux disease without esophagitis; F32.9 Major depressive disorder, single episode, unspecified; F41.9 Anxiety disorder, unspecified; K74.60 Unspecified cirrhosis of liver; F10.229 Alcohol dependence with intoxication, unspecified; N18.3 Chronic kidney disease, stage 3 (moderate); K52.9 Noninfective gastroenteritis and colitis, unspecified; D12.2 Benign neoplasm of ascending colon; K44.9 Diaphragmatic hernia without obstruction or gangrene; K64.4 Residual hemorrhoidal skin tags; Z23 Encounter for immunization; Z68.26 Body mass index [BMI] 26.0-26.9, adult

== ENCOUNTER 2018-07-23 07:28 | Inpatient (IN) | payer OTHER ==
[2018-07-23] VITALS (16 sets, daily range): BP systolic 65–138; BP diastolic 33–71
[~2018-07-23] VITALS: Ht 165.1 cm; Wt 73.5 kg
[~2018-07-23 07:28] MED LIST changes: +METFORMIN HCL500 MG PO
[2018-07-23] MEDS ORDERED: FLEXERIL PO (08:07)
[2018-07-23] MEDS ORDERED: LORAZEPAM 0.50.5 M1 PO (08:07)
[2018-07-23 08:17] LABS: HEMATOCRIT 32.9 % (37.0-47.0); HEMOGLOBIN 9.6 gm/dL (12.0-15.0); MCH 30.6 pg (26.0-34.0); MCHC 29.1 g/dL (28.0-37.0); MCV 105.2 fL (80.0-100.0); MPV 8.6 fl. (7.2-11.1); NUCLEATED RBCS 0 /100WBC; PLATELET COUNT* 466 thou/uL (150-400); RBC 3.13 mil/uL (4.20-5.00); RDW-CV 17.5 % (10.5-14.5); WBC 15.2 thou/uL (4.0-11.0)
[2018-07-23 08:23] LABS: ANION GAP 44 mmol/L (7-16); BUN 29 mg/dL (7-18); CALCIUM 8.9 mg/dL (8.5-10.1); CHLORIDE 96 mmol/L (98-107); CREATININE 3.8 mg/dL (0.6-1.3); GLUCOSE 121 mg/dL (70-99); POTASSIUM 4.4 mmol/L (3.5-5.1); SODIUM 145 mmol/L (136-145)
[2018-07-23 08:35] LABS: ALBUMIN 3.8 g/dL (3.4-5.0); ALKALINE PHOSPHATASE 117 U/L (46-116); CK-MB MASS 2.2 ng/mL (<0.5-3.6); LIPASE 164 U/L (73-393); SGOT 94 U/L (15-37); SGPT 45 U/L (30-65); TOTAL BILIRUBIN 0.3 mg/dL (<0.1-1.0); TOTAL PROTEIN 7.7 g/dL (6.4-8.2); TROPONIN-I LEVEL <0.06 ng/mL (<0.06)
[2018-07-23 08:37] LABS: CO2 < 5 mmol/L (21-32)
[2018-07-23 08:43] LABS: BE -27.9 mmol/L (-2 to +3)
[2018-07-23 08:46] LABS: pH 6.926 (7.340-7.450)
[2018-07-23 08:47] LABS: HCO3 2.8 mmol/L (22.0-26.0); PCO2 < 17.0 mmHg (35.0-45.0); PO2 206.2 mmHg (75.0-100.0)
[2018-07-23 09:01] LABS: ABSOLUTE LYMPHOCYTES 2.4 thou/uL (0.8-5.3); ABSOLUTE MONOCYTES 0.5 thou/uL (0.0-1.2); ABSOLUTE NEUTROPHILS 12.3 thou/uL (1.6-8.1); PLATELET ESTIMATE INCREASED
[2018-07-23 09:24] LABS: URINE BILIRUBIN NEGATIVE (Negative); URINE BLOOD NEGATIVE (Negative); URINE CLARITY CLEAR; URINE COLOR YELLOW; URINE GLUCOSE-RANDOM NEGATIVE (Negative); URINE KETONES 1+ (Negative); URINE LEUKOCYTES-REFLEX NEGATIVE (Negative); URINE NITRITE-REFLEX NEGATIVE (Negative); URINE PROTEIN TRACE (Negative); URINE SPECIFIC GRAVITY >= 1.030 (1.005-1.030); URINE UROBILINOGEN 0.2 E.U./dl (0.2-1.0)
[2018-07-23 09:41] LABS: AMP/METHAMP Negative (Negative); BARBITURATES Negative (Negative); BENZODIAZEPINES Negative (Negative); COCAINE Negative (Negative); METHADONE Negative (Negative); OPIATES Negative (Negative); PCP Negative (Negative); THC Negative (Negative)
[2018-07-23 10:33] LABS: BE -22.2 mmol/L (-2 to +3); PCO2 24.5 mmHg (35.0-45.0)
[2018-07-23 10:36] LABS: HCO3 6.6 mmol/L (22.0-26.0); PO2 158.9 mmHg (75.0-100.0); pH 7.049 (7.340-7.450)
[2018-07-23 11:43] LABS: BE -19.2 mmol/L (-2 to +3); PCO2 21.2 mmHg (35.0-45.0)
[2018-07-23 11:44] LABS: PO2 129.8 mmHg (75.0-100.0); pH 7.169 (7.340-7.450)
[2018-07-23 11:45] LABS: HCO3 7.5 mmol/L (22.0-26.0)
[2018-07-23 12:44] LABS: CREATININE 3.2 mg/dL (0.6-1.3); POTASSIUM 4.3 mmol/L (3.5-5.1)
--- NOTE | 2018-07-23 16:25 | EKG ---
[place] [address] ELECTROCARDIOGRAM REPORT Name: NANY FARAH Room: [address] ADM IN M.R.#: [id number] Admission: 07/23/18 Attend Phys: Elsa Chacon MD Discharge: Date of : 62 Report #: [id number] THIS REPORT FOR: //name// [facility] ED Test Date: 2018-07-23 Test Time: 07:40:14 Pat Name: NANY FARAH Department: Room: [facility] Gender: F Dev Manager: Nataliya LAROSE : 1960 Requested By: Joaquina Smart Order Number: [id number] Sabina MD: Carl Horner Measurements Intervals [place] Rate: 99 P: 63 AR: 132 QRS: 11 QRSD: 121 T: 31 QT: 410 QTc: 527 Interpretive Statements Sinus rhythm Baseline wander in lead(s) II,aVR,V4 Compared to ECG 07/17/2018 13:27:22 A sliding wander noted Electronically Signed On 07-23-2018 16:25:41 SAW GRINDER by Carl Horner [email or web address] <ELECTRONICALLY SIGNED> By: Carl Horner MD, FACC 07/23/18 1625 0740 0740 Carl Horner MD, FAC /EPI
--- NOTE | 2018-07-23 16:49 | CON ---
[address] [address] CONSULTATION Name: NANY FARAH Room: [address] IN M.R.#: [id number] Admission: 07/23/18 Attend Phys: Elsa Chacon MD Discharge: Date of : 62 Report #: [id number] THIS REPORT FOR: //name// CC: Sonu Chacon MD DATE OF SERVICE: 07/23/2018 ATTENDING PHYSICIAN: Elsa Chacon MD INDICATION FOR CONSULTATION: Acute respiratory failure, metabolic acidosis, alcohol withdrawal. CLINICAL SUMMARY: The patient is a 58-year-old female, a current smoker with history of heavy alcohol use. The patient was just discharged from the hospital a week or two ago. She has had some nausea and vomiting for the last 2 days, she had some hematemesis. She continued to drink. Her alcohol level was less than 25 when she hit the Emergency Room. She was lethargic, tachypneic. Her bicarbonate was less than 2, pH was 6.9. Decision was made to intubate her to protect her airway and also to help with her acid base balance. No other history is available at this time except her old records. PAST MEDICAL HISTORY: Again, acute and chronic alcohol use, acute renal failure, metabolic acidosis. No definite history of diabetes. She has had alcoholic gastritis and hepatitis. She has also had some mild hypotension in the past. ALLERGIES: She has no known medical allergies. OUTPATIENT MEDICATIONS: Included sucralfate 1 gram q.i.d., sertraline, Zoloft 100 mg at bedtime, and thiamine 100 mg p.o. daily. She was on metformin at one point in time, she has been off that and also some Phenergan. Also, at some point in time was supposed to take Protonix 40 mg daily. FAMILY HISTORY: There is no pertinent family history. SOCIAL HISTORY: Alcohol use, as noted, daily consumption. I believe she works outside the home. By history, she is a never smoker, just a remote smoker. REVIEW OF SYSTEMS: A 14-point review of systems was reviewed and negative except for the pertinent positives noted in HPI. PHYSICAL EXAMINATION: GENERAL: A 58-year-old female, sedated, in mild to moderate distress. She is mildly hypotensive, but she is comfortable on the ventilator[place] [address] CONSULTATION Name: NANY FARAH Room: [address] IN [facility]#: [id number] Admission: 07/23/18 Attend Phys: Elsa Chacon MD Discharge: Date of : 62 Report #: [id number] sedated at this time. VITAL SIGNS: Her blood pressure was 110/50 on Levophed at 14 mcg, pulse rate 120, respirations are 20 over backup rate of 20, temperature is 36 degrees and she is 5 feet 4 inches tall, weighs 75 kg or 165 pounds, BMI is 27. HEENT: Pupils are midpoint and reactive. She is orally intubated. Mucous membranes appear dry. NECK: No increase in jugular venous pressure. CHEST: Reveals clear breath sounds without wheeze or rhonchi. CARDIOVASCULAR: Sinus tachycardia with heart rate of 120. ABDOMEN: Soft, without masses or megaly. EXTREMITIES: No calf tenderness. No cyanosis, clubbing or edema. NEUROLOGIC: She will withdraw and move all 4 extremities to commands at times before she was sedated in the ICU. LABORATORY DATA: From today, this morning hemoglobin was 9.6, white count 15,200, platelets are 466,000, absolute neutrophils 12.3 thousand. Sodium is 142, potassium is 4.3, carbon dioxide level is 9, anion gap is 34, BUN is 29, creatinine is 3.2 and glucose was 300, has now come down to 193. Lactic acid was 2.8. It did increase to 7 at 12:17 this afternoon. Urine drug screen was negative and the alcohol level was 26 when this was drawn at 8:06 this morning and then 9:10 to follow. Initial blood gases at 10:26 this morning on 50%, 550, assist control of 12, PEEP of 5 showed a pO2 of 158, pH 7.049, pCO2 of 24, bicarbonate was 6 and a sat of 97%. Then, repeat at 11:30 this afternoon showed a pH up to 7.17, pCO2 down to 21, pO2 stable at 129 and a bicarbonate of 7.5. The patient currently is on a bicarbonate drip. Chest x-ray shows ET tube in good position, central line in good position, no infiltrates or CHF, no pneumothorax. IMPRESSION: 1. Alcoholic ketosis. 2. Metabolic acidosis related to above. 3. Acute respiratory failure related to acute alcohol intoxication and also electrolyte abnormalities. PLAN: Continue fluids. Diprivan and fentanyl seem to be giving her the most sedation at this time. Hopefully, once her intravascular volume is filled up with adequate preload with the bicarbonate drip, then we can start cutting back on her Levophed. Normally, she has been able to be extubated fairly quickly. She is being covered with antibiotics, I do not think she needs steroids at least at this time. She is also on some nebulizer breathing treatments. Rule out any evidence of aspiration. We will follow up chest x-rays and ABGs in the morning. [address] [address] CONSULTATION Name: NANY FARAH Room: [address] IN M.R.#: [id number] Admission: 07/23/18 Attend Phys: Elsa Chacon MD Discharge: Date of : 62 Report #: [id number] Thanks again for allowing us to participate in this lady's care. We will follow up along with you while she is in the Intensive Care Unit. <ELECTRONICALLY SIGNED> By: Giorgio Taylor MD 07/23/18 1649 [id number] [id number] Taylor MD /nt
[2018-07-23 20:50] LABS: BE -0.5 mmol/L (-2 to +3); HCO3 22.7 mmol/L (22.0-26.0); PCO2 31.4 mmHg (35.0-45.0); PO2 109.7 mmHg (75.0-100.0); pH 7.477 (7.340-7.450)
[2018-07-23 21:10] LABS: GLYCOHEMOGLOBIN (HGB A1C) 4.9 % (4.8-5.6)
[2018-07-24] VITALS (26 sets, daily range): BP systolic 92–137; BP diastolic 43–84
[2018-07-24 05:11] LABS: BE 0.5 mmol/L (-2 to +3); HCO3 24.7 mmol/L (22.0-26.0); PCO2 37.3 mmHg (35.0-45.0); PO2 105.1 mmHg (75.0-100.0); pH 7.438 (7.340-7.450)
[2018-07-24 06:06] LABS: HEMOGLOBIN 7.7 gm/dL (12.0-15.0); MCH 31.9 pg (26.0-34.0); MCHC 34.9 g/dL (28.0-37.0); MPV 7.1 fl. (7.2-11.1); RBC 2.41 mil/uL (4.20-5.00); RDW-CV 15.9 % (10.5-14.5); WBC 7.1 thou/uL (4.0-11.0)
[2018-07-24 06:15] LABS: MCV 91.2 fL (80.0-100.0)
[2018-07-24 06:23] LABS: ALBUMIN 2.6 g/dL (3.4-5.0); CALCIUM 6.6 mg/dL (8.5-10.1); CREATININE 2.4 mg/dL (0.6-1.3); TOTAL BILIRUBIN 0.5 mg/dL (<0.1-1.0); TOTAL PROTEIN 5.4 g/dL (6.4-8.2)
[2018-07-24 06:26] LABS: POTASSIUM 2.8 mmol/L (3.5-5.1)
[2018-07-24 11:25] LABS: HEMOGLOBIN 7.4 gm/dL (12.0-15.0); MCH 30.8 pg (26.0-34.0); MCHC 33.8 g/dL (28.0-37.0); MCV 91.2 fL (80.0-100.0); MPV 7.6 fl. (7.2-11.1); RBC 2.41 mil/uL (4.20-5.00); RDW-CV 15.8 % (10.5-14.5); WBC 8.6 thou/uL (4.0-11.0)
--- NOTE | 2018-07-24 11:31 | CON ---
[address] [address] CONSULTATION Name: NANY FARAH Room: [address] IN ..#: [id number] Admission: 07/23/18 Attend Phys: Elsa Chacon MD Discharge: Date of : 62 Report #: [id number] THIS REPORT FOR: //name// CC: Sonu Chacon DATE OF SERVICE: 07/23/2018 REQUESTING PHYSICIAN: ____. REASON FOR CONSULTATION: Acute kidney injury and metabolic acidosis. HISTORY OF PRESENT ILLNESS: The patient is very unfortunate 58-year-old female with medical history significant for severe alcoholism. She was just in ICU last week, was discharged a couple of days ago, presented again with severe alcohol intoxication with a blood pressure in 50s, severe metabolic acidosis with a pH of 6.926, which is exactly the same as she had, last time during admission, she has an acute kidney injury with a creatinine of 3.8, serum sodium of 145. So, she had to be intubated and admitted to Intensive Care Unit, was given IV fluids now is on bicarbonate drip and banana bag. SOCIAL HISTORY: Significant for alcoholism. MEDICAL HISTORY: Significant for alcoholism, severe malnutrition, and medical noncompliance. FAMILY HISTORY: Noncontributory. REVIEW OF SYSTEMS: Unobtainable since she is intubated. PHYSICAL EXAMINATION: GENERAL: She is in intensive care unit, intubated. EYES: Her pupils are round. VITAL SIGNS: Blood pressure now is 108/50, heart rate 119, afebrile. NECK: Supple. LUNGS: Clear. CARDIOVASCULAR: Tachycardia. ABDOMEN: Soft. LOWER EXTREMITIES: No edema. LABORATORY REPORT: As I mentioned earlier. ASSESSMENT: 1. Alcoholism very severe with protein malnutrition. 2. Acute metabolic acidosis due to dehydration, alcoholism [place] [address] CONSULTATION Name: NANY FARAH Room: [address] IN [facility]#: [id number] Admission: 07/23/18 Attend Phys: Elsa Chacon MD Discharge: Date of : 62 Report #: [id number] 3. Acute kidney injury. PLAN: 1. To continue with the bicarb drip, we will change water to sterile water with 3 amp of bicarbonate at 100. 2. Continue with banana bag. 3. The patient needs to have a psychiatric evaluation for possible inpatient treatment for her alcoholism. I urge child welfare social worker to arrange that and I urged psychiatrist to evaluate her very carefully because if we do not and if we let her go home again, she will be there fairly soon. ____ can do right now is drink and drink alcohol. So again, I think it is very important to get inpatient hospitalization for this patient and put her through treatment during rehabilitation for her alcoholism. <ELECTRONICALLY SIGNED> By: Donnell Carmichael MD 07/24/18 1131 [id number] Carmichael MD /bimal
[2018-07-24 11:37] LABS: CALCIUM 7.5 mg/dL (8.5-10.1); CREATININE 2.1 mg/dL (0.6-1.3)
[2018-07-24 16:38] LABS: MAGNESIUM 2.3 mg/dL (1.8-2.4)
[2018-07-24 16:40] LABS: POTASSIUM 2.8 mmol/L (3.5-5.1)
[2018-07-25] VITALS (44 sets, daily range): BP systolic 74–143; BP diastolic 43–91
[2018-07-25 06:04] LABS: BE 3.3 mmol/L (-2 to +3); HCO3 26.9 mmol/L (22.0-26.0); PCO2 36.4 mmHg (35.0-45.0); pH 7.487 (7.340-7.450)
[2018-07-25 06:37] LABS: HEMATOCRIT 21.5 % (37.0-47.0); HEMOGLOBIN 7.2 gm/dL (12.0-15.0); MCH 30.5 pg (26.0-34.0); MCHC 33.3 g/dL (28.0-37.0); MCV 91.7 fL (80.0-100.0); MPV 7.2 fl. (7.2-11.1); RBC 2.35 mil/uL (4.20-5.00); RDW-CV 16.1 % (10.5-14.5); WBC 8.4 thou/uL (4.0-11.0)
[2018-07-25 07:25] LABS: ALBUMIN 2.5 g/dL (3.4-5.0); CALCIUM 8.1 mg/dL (8.5-10.1); CREATININE 1.3 mg/dL (0.6-1.3); TOTAL BILIRUBIN 0.8 mg/dL (<0.1-1.0); TOTAL PROTEIN 5.5 g/dL (6.4-8.2)
[2018-07-25 14:41] LABS: BE 6.9 mmol/L (-2 to +3); HCO3 31.7 mmol/L (22.0-26.0); PCO2 46.7 mmHg (35.0-45.0); PO2 90.3 mmHg (75.0-100.0); pH 7.449 (7.340-7.450)
[2018-07-26] VITALS (33 sets, daily range): BP systolic 78–150; BP diastolic 49–93
[2018-07-26 05:43] LABS: HEMATOCRIT 21.7 % (37.0-47.0); HEMOGLOBIN 7.2 gm/dL (12.0-15.0); MCH 30.9 pg (26.0-34.0); MCV 93.6 fL (80.0-100.0); MPV 7.5 fl. (7.2-11.1); RBC 2.32 mil/uL (4.20-5.00); RDW-CV 15.6 % (10.5-14.5); WBC 5.7 thou/uL (4.0-11.0)
[2018-07-26 06:01] LABS: ALBUMIN 2.4 g/dL (3.4-5.0); CALCIUM 8.9 mg/dL (8.5-10.1); CREATININE 0.9 mg/dL (0.6-1.3); POTASSIUM 3.6 mmol/L (3.5-5.1); TOTAL BILIRUBIN 0.8 mg/dL (<0.1-1.0); TOTAL PROTEIN 5.7 g/dL (6.4-8.2)
[2018-07-26 09:13] LABS: BE -1.6 mmol/L (-2 to +3); HCO3 22.3 mmol/L (22.0-26.0); PCO2 33.7 mmHg (35.0-45.0); PO2 120.8 mmHg (75.0-100.0); pH 7.438 (7.340-7.450)
[2018-07-27] VITALS (10 sets, daily range): BP systolic 106–142; BP diastolic 70–101
[2018-07-27 04:55] LABS: HEMATOCRIT 24.4 % (37.0-47.0); HEMOGLOBIN 8.1 gm/dL (12.0-15.0); MCH 31.4 pg (26.0-34.0); MCHC 33.3 g/dL (28.0-37.0); MCV 94.2 fL (80.0-100.0); RBC 2.59 mil/uL (4.20-5.00); WBC 6.1 thou/uL (4.0-11.0)
[2018-07-27 05:37] LABS: BE 1.4 mmol/L (-2 to +3); HCO3 25.4 mmol/L (22.0-26.0); PCO2 37.5 mmHg (35.0-45.0); PO2 77.9 mmHg (75.0-100.0); pH 7.449 (7.340-7.450)
[2018-07-27 05:49] LABS: ALBUMIN 2.7 g/dL (3.4-5.0); CALCIUM 9.3 mg/dL (8.5-10.1); CREATININE 0.9 mg/dL (0.6-1.3); MAGNESIUM 1.4 mg/dL (1.8-2.4); POTASSIUM 3.4 mmol/L (3.5-5.1); TOTAL BILIRUBIN 0.7 mg/dL (<0.1-1.0); TOTAL PROTEIN 6.4 g/dL (6.4-8.2)
[2018-07-27 06:05] LABS: ADENOVIRUS Negative (Negative); INFLUENZA A Negative (Negative); INFLUENZA B Negative (Negative); METAPNEUMOVIRUS Negative (Negative); PARAINFLUENZA 1 Negative (Negative); PARAINFLUENZA 2 Negative (Negative); PARAINFLUENZA 3 Negative (Negative); RHINOVIRUS Negative (Negative); RSV A Negative (Negative); RSV B Negative (Negative)
[2018-07-28] VITALS: BP 124/70
[2018-07-28 04:00] VITALS: BP 111/65
[2018-07-28 05:27] LABS: HEMATOCRIT 22.3 % (37.0-47.0); HEMOGLOBIN 7.6 gm/dL (12.0-15.0); MCH 32.1 pg (26.0-34.0); MCHC 33.9 g/dL (28.0-37.0); MCV 94.6 fL (80.0-100.0); MPV 7.8 fl. (7.2-11.1); RBC 2.36 mil/uL (4.20-5.00); RDW-CV 15.3 % (10.5-14.5); WBC 4.1 thou/uL (4.0-11.0)
[2018-07-28 06:28] LABS: ALBUMIN 2.6 g/dL (3.4-5.0); CALCIUM 9.4 mg/dL (8.5-10.1); CREATININE 0.9 mg/dL (0.6-1.3); MAGNESIUM 2.2 mg/dL (1.8-2.4); POTASSIUM 3.5 mmol/L (3.5-5.1); TOTAL BILIRUBIN 0.4 mg/dL (<0.1-1.0); TOTAL PROTEIN 6.1 g/dL (6.4-8.2)
[2018-07-28 08:00] VITALS: BP 114/72
[2018-07-28 19:50] VITALS: BP 104/73
[2018-07-29 05:06] LABS: HEMATOCRIT 22.2 % (37.0-47.0); HEMOGLOBIN 7.5 gm/dL (12.0-15.0); MCH 31.8 pg (26.0-34.0); MCHC 33.9 g/dL (28.0-37.0); MCV 93.9 fL (80.0-100.0); MPV 7.9 fl. (7.2-11.1); RBC 2.37 mil/uL (4.20-5.00); RDW-CV 15.2 % (10.5-14.5); WBC 3.5 thou/uL (4.0-11.0)
[2018-07-29 05:20] LABS: CALCIUM 9.1 mg/dL (8.5-10.1); CREATININE 0.9 mg/dL (0.6-1.3); MAGNESIUM 1.7 mg/dL (1.8-2.4); POTASSIUM 3.1 mmol/L (3.5-5.1)
[2018-07-29 08:00] VITALS: BP 130/84
[2018-07-29 12:50] VITALS: BP 114/79
[2018-07-29 16:33] VITALS: BP 107/76
[2018-07-29 20:00] VITALS: BP 116/83
[2018-07-30 08:10] VITALS: BP 124/62
[2018-07-30] MEDS ORDERED: DOXYCYCLINE 10100 MG PO (09:01)
[2018-07-30 09:12] VITALS: BP 124/62
== END 2018-07-30 12:45 | disposition home health service (06) | DRG 208 ==
LOC: M.ERS 07:28 → M.ICU 09:01 → M.TBA-ER 09:01 → M.ICU 10:46 → M.2W 07-27 13:35 → M.ORTHSURG 07-29 12:19
PROVIDERS: Internal Medicine Nephrology; Internal Medicine Pulmonary Disease; Personal Emergency Response Attendant; ADMIT Internal Medicine
DX: J96.00 Acute respiratory failure, unspecified whether with hypoxia or hypercapnia (principal); E43 Unspecified severe protein-calorie malnutrition; J15.6 Pneumonia due to other Gram-negative bacteria; N17.9 Acute kidney failure, unspecified; E87.2 Acidosis; F10.230 Alcohol dependence with withdrawal, uncomplicated; G93.40 Encephalopathy, unspecified; E78.5 Hyperlipidemia, unspecified; M81.0 Age-related osteoporosis without current pathological fracture; R73.9 Hyperglycemia, unspecified; K70.10 Alcoholic hepatitis without ascites; K70.30 Alcoholic cirrhosis of liver without ascites; E87.6 Hypokalemia; E87.8 Other disorders of electrolyte and fluid balance, not elsewhere classified; F10.220 Alcohol dependence with intoxication, uncomplicated; E86.0 Dehydration; K21.9 Gastro-esophageal reflux disease without esophagitis; F32.9 Major depressive disorder, single episode, unspecified; F41.9 Anxiety disorder, unspecified; I95.9 Hypotension, unspecified; Z68.27 Body mass index [BMI] 27.0-27.9, adult; Z87.828 Personal history of other (healed) physical injury and trauma; Z79.899 Other long term (current) drug therapy

== ENCOUNTER 2018-09-18 18:40 | Inpatient (IN) | payer OTHER ==
[~2018-09-18] VITALS: Ht 167.6 cm; Wt 78.0 kg
[~2018-09-18 18:40] MED LIST changes: +DOXYCYCLINE 10100 MG PO; +FLEXERIL PO; +LORAZEPAM 0.50.5 M1 PO
[2018-09-18 18:44] VITALS: BP 163/103
[2018-09-18 19:31] LABS: ABSOLUTE BASOPHILS 0.1 thou/uL (0.0-0.2); ABSOLUTE LYMPHOCYTES 1.3 thou/uL (0.8-5.3); ABSOLUTE MONOCYTES 0.3 thou/uL (0.0-1.2); ABSOLUTE NEUTROPHILS 3.3 thou/uL (1.6-8.1); BASOPHILS 1.6 %; EOSINOPHILS 0.3 %; HEMATOCRIT 29.6 % (37.0-47.0); HEMOGLOBIN 9.5 gm/dL (12.0-15.0); LYMPHOCYTES 26.1 %; MCH 26.5 pg (26.0-34.0); MCHC 32.1 g/dL (28.0-37.0); MCV 82.4 fL (80.0-100.0); MONOCYTES 5.1 %; NUCLEATED RBCS 0 /100WBC; PLATELET COUNT* 290 thou/uL (150-400); POLYS 66.9 %; RBC 3.59 mil/uL (4.20-5.00); RDW-CV 16.4 % (10.5-14.5); WBC 4.9 thou/uL (4.0-11.0)
[2018-09-18 19:44] LABS: ANION GAP 26 mmol/L (7-16); BUN 11 mg/dL (7-18); CALCIUM 9.3 mg/dL (8.5-10.1); CHLORIDE 104 mmol/L (98-107); CO2 16 mmol/L (21-32); GLUCOSE 90 mg/dL (70-99); POTASSIUM 3.2 mmol/L (3.5-5.1); SODIUM 146 mmol/L (136-145)
[2018-09-18 19:51] LABS: ALBUMIN 4.1 g/dL (3.4-5.0); ALKALINE PHOSPHATASE 77 U/L (46-116); LIPASE 60 U/L (73-393); SGOT 36 U/L (15-37); SGPT 25 U/L (30-65); TOTAL BILIRUBIN 0.3 mg/dL (<0.1-1.0); TOTAL PROTEIN 7.8 g/dL (6.4-8.2); TROPONIN-I LEVEL <0.06 ng/mL (<0.06)
[2018-09-18 20:04] LABS: URINE BILIRUBIN NEGATIVE (Negative); URINE BLOOD TRACE (Negative); URINE CLARITY CLEAR; URINE COLOR YELLOW; URINE GLUCOSE-RANDOM NEGATIVE (Negative); URINE KETONES 2+ (Negative); URINE LEUKOCYTES-REFLEX 1+ (Negative); URINE NITRITE-REFLEX NEGATIVE (Negative); URINE PROTEIN 1+ (Negative); URINE SPECIFIC GRAVITY 1.025 (1.005-1.030); URINE UROBILINOGEN 0.2 E.U./dl (0.2-1.0)
[2018-09-18 20:13] LABS: HYALINE CASTS 0-3 Few /LPF (None Seen); SQUAMOUS >10 Many /LPF (0-3)
[2018-09-18 20:14] LABS: CRYSTALS None Seen /LPF (None Seen); MUCUS None Seen strn/LPF (None Seen); URINE RBC 0-2 Rare /HPF (0-2); URINE WBC-REFLEX 6-15 Few /HPF (0-5)
[2018-09-18 22:08] VITALS: BP 138/80
[2018-09-19] MEDS ORDERED: TRAZODONE HCL100 MG PO (03:23)
[2018-09-19] MEDS ORDERED: ZOLOFT50 MG PO (03:24)
[2018-09-19] MEDS ORDERED: PROTONIX40 M1 PO (03:24)
[2018-09-19 04:00] VITALS: BP 139/82
[2018-09-19 08:00] VITALS: BP 165/94
--- NOTE | 2018-09-19 11:06 | EKG ---
[place] [address] ELECTROCARDIOGRAM REPORT Name: NANY FARAH Room: [address] ADM IN .R.#: [id number] Admission: 09/18/18 Attend Phys: Nataliya Doll Discharge: Date of : 62 Report #: [id number] THIS REPORT FOR: //name// 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 : 1960 Requested By: Papito Maurer Order Number: [id number] MD: Zachary Warren Measurements Intervals [place] Rate: 107 P: 38 LA: 158 QRS: -25 QRSD: 99 T: 45 QT: 369 QTc: 493 Interpretive Statements Sinus tachycardia Probable left atrial enlargement Borderline left axis deviation Low voltage, extremity leads Abnormal R-wave progression, late transition Nonspecific T abnrm, anterolateral leads Borderline prolonged QT interval Baseline wander in lead(s) I,II,aVR,aVL,V1,V2,V3,V4,V5,V6 Compared to ECG 07/23/2018 07:40:14 Sinus rhythm no longer present Electronically Signed On 09-19-2018 11:06:[address]IA[address] by Zachary Warren [email or web address] <ELECTRONICALLY SIGNED> By: Zachary Warren MD, [facility] 09/19/18 1106 Zachary Warren MD, [facility] /EPI
--- NOTE | 2018-09-19 11:11 | EKG ---
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 : 1960 Requested By: Amari Haro Order Number: [id number] MD: Zachary Warren Measurements Intervals [place] Rate: 100 P: 46 TN: 142 QRS: -36 QRSD: 96 T: 62 QT: 368 QTc: 475 Interpretive Statements Sinus tachycardia Probable left atrial enlargement Left axis deviation Borderline T abnormalities, anterior leads Electronically Signed On 09-19-2018 11:11:42 [employer] by Zachary Warren [email or web address] <ELECTRONICALLY SIGNED> By: Zachary Warren MD, [facility] 09/19/18 [facility] 52 52 Zachary Warren MD, [facility] /EPI
[2018-09-19 11:52] VITALS: BP 160/91
[2018-09-19 13:08] LABS: ABSOLUTE LYMPHOCYTES 1.5 thou/uL (0.8-5.3); ABSOLUTE MONOCYTES 0.3 thou/uL (0.0-1.2); ABSOLUTE NEUTROPHILS 2.7 thou/uL (1.6-8.1); BASOPHILS 0.6 %; EOSINOPHILS 0.9 %; HEMOGLOBIN 8.4 gm/dL (12.0-15.0); LYMPHOCYTES 32.7 %; MCH 26.4 pg (26.0-34.0); MCHC 32.2 g/dL (28.0-37.0); MCV 81.7 fL (80.0-100.0); MONOCYTES 7.4 %; NUCLEATED RBCS 0 /100WBC; POLYS 58.4 %; RBC 3.18 mil/uL (4.20-5.00); RDW-CV 16.3 % (10.5-14.5); WBC 4.5 thou/uL (4.0-11.0)
[2018-09-19 13:09] LABS: PLATELET COUNT* 203 thou/uL (150-400)
[2018-09-19 13:30] LABS: ALBUMIN 3.2 g/dL (3.4-5.0); CALCIUM 7.8 mg/dL (8.5-10.1); CREATININE 0.7 mg/dL (0.6-1.3); MAGNESIUM 1.8 mg/dL (1.8-2.4); POTASSIUM 3.3 mmol/L (3.5-5.1); TOTAL BILIRUBIN 0.9 mg/dL (<0.1-1.0); TOTAL PROTEIN 6.4 g/dL (6.4-8.2)
[2018-09-19 20:00] VITALS: BP 129/85
[2018-09-20] VITALS: BP 131/79
[2018-09-20 04:00] VITALS: BP 135/82
[2018-09-20 08:25] VITALS: BP 143/86
[2018-09-20 11:56] VITALS: BP 131/81
[2018-09-20 12:39] LABS: CALCIUM 8.1 mg/dL (8.5-10.1); CREATININE 0.7 mg/dL (0.6-1.3); MAGNESIUM 1.8 mg/dL (1.8-2.4)
[2018-09-20 20:00] VITALS: BP 137/92
[2018-09-21] VITALS: BP 121/77
[2018-09-21 04:00] VITALS: BP 137/94
[2018-09-21 08:02] VITALS: BP 144/97
[2018-09-21 12:55] VITALS: BP 149/99
[2018-09-21 13:01] VITALS: BP 149/99
[2018-09-21] MEDS ORDERED: THERAGRAN-M PR1 EAC1 PO (13:10)
[2018-09-21] MEDS ORDERED: VITAFOL-OB+DHA1 EACH PO (13:11)
== END 2018-09-21 13:45 | disposition home or self-care (01) | DRG 897 ==
LOC: M.ERS 18:40 → M.2W 21:20 → M.TBA-ER 21:20 → M.2W 21:33
PROVIDERS: Emergency Medicine Emergency Medical Services; Nurse Practitioner; ADMIT Internal Medicine
DX: F10.221 Alcohol dependence with intoxication delirium (principal); M81.0 Age-related osteoporosis without current pathological fracture; E78.5 Hyperlipidemia, unspecified; K21.9 Gastro-esophageal reflux disease without esophagitis; Z79.899 Other long term (current) drug therapy; D64.89 Other specified anemias; E87.6 Hypokalemia; F32.9 Major depressive disorder, single episode, unspecified; F41.9 Anxiety disorder, unspecified; K70.30 Alcoholic cirrhosis of liver without ascites; Z87.828 Personal history of other (healed) physical injury and trauma

== ENCOUNTER 2018-11-06 06:57 | Emergency (ER) | payer OTHER ==
[~2018-11-06] VITALS: Ht 175.3 cm; Wt 73.5 kg
[~2018-11-06 06:57] MED LIST changes: +THERAGRAN-M PR1 EAC1 PO; +VITAFOL-OB+DHA1 EACH PO
[2018-11-06 09:58] VITALS: BP 0/0
--- NOTE | 2018-11-06 16:47 | EKG ---
[place] [address] ELECTROCARDIOGRAM REPORT Name: NANY FARAH Room: [facility]#: [id number] Admission: 11/06/18 Attend Phys: Discharge: 11/06/18 Date of : 62 Report #: [id number] THIS REPORT FOR: //name// 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 Viramontes : 1960 Requested By: Papito Maurer Order Number: [id number] MD: Artemio Holbrook Measurements Intervals [place] Rate: 57 P: [place]: QRS: 232 QRSD: 141 T: -88 QT: 641 QTc: 625 Interpretive Statements Irregular idioventicular escape rhythm Right bundle branch block Lead(s) I,V3,V4 were not used for morphology analysis Compared to ECG 09/18/2018 19:53:28 Wide QRS escape rhythm is noted Electronically Signed On 11-06-2018 16:46:54 CDT by Artemio Holbrook [email or web address] <ELECTRONICALLY SIGNED> By: Artemio Holbrook MD, [facility] 11/06/18 1646 0700 0700 Artemio Holbrook MD, [facility] /EPI
== END 2018-11-06 09:58 ==
LOC: M.ERS 06:57
DX: I46.9 Cardiac arrest, cause unspecified (principal); F10.10 Alcohol abuse, uncomplicated; Y90.9 Presence of alcohol in blood, level not specified